=== PATIENT | female | born 1975 | race Caucasian/White ===

== ENCOUNTER 2016-05-27 18:47 | Inpatient (IN) | payer MEDICAID ==
[~2016-05-27] VITALS: Ht 152.4 cm; Wt 99.2 kg
[~2016-05-27 18:47] MED LIST: CALC600T11 PO; FERR15DR19 PO; FERR325C PO; IBUP800T25 PO; PERCOCET PO; PRENAT PO
[2016-05-27 18:50] VITALS: Ht 152.4 cm; Wt 99.2 kg
[2016-05-27] MEDS ORDERED: SOD CHLORIDE 0.9% 1,000 ML IV STA (19:09)
[2016-05-27] MEDS ORDERED: ONDANSETRON 4 MG INJ IV STA (19:09)
[2016-05-27 19:39] LABS: ADD SCAN DIFF NO
[2016-05-27 19:41] LABS: BASOPHILS % 0.1 % (0.0-2.0); EOSINOPHILS # 0.1 10^3/ul (0.0-0.5); EOSINOPHILS % 0.8 % (0.0-7.0); HEMATOCRIT 41.8 % (37.0-47.0); HEMOGLOBIN 13.2 g/dl (12.0-16.0); LYMPHOCYTES % 19.2 % (15.0-51.0); MEAN CORPUSCULAR HEMOGLOBIN 27.2 pg (29.0-33.0); MEAN CORPUSCULAR HGB CONC 31.6 g/dl (32.0-37.0); MEAN PLATELET VOLUME 9.6 fl (7.4-10.4); MONOCYTE # 0.6 10^3/ul (0.3-0.9); MONOCYTES % 5.9 % (0.0-11.0); NEUTROPHIL # 7.8 10^3/ul (1.6-7.5); NEUTROPHILS % 73.6 % (39.0-77.0); PLATELET COUNT 297 10^3/UL (140-415); RED BLOOD COUNT 4.86 10^6/ul (4.20-5.40); RED CELL DISTRIBUTION WIDTH 13.7 % (11.5-14.5); WHITE BLOOD COUNT 10.6 10^3/ul (4.8-10.8)
[2016-05-27 19:46] LABS: ADD UMIC NO; URINE BILIRUBIN (Dip) NEGATIVE (NEGATIVE); URINE BLOOD (Dip) NEGATIVE (NEGATIVE); URINE COLOR YELLOW (YELLOW); URINE GLUCOSE (Dip) NEGATIVE (NEGATIVE); URINE KETONES (Dip) TRACE (NEGATIVE); URINE LEUKOCYTE ESTERASE (Dip) NEGATIVE (NEGATIVE); URINE NITRITE (Dip) NEGATIVE (NEGATIVE); URINE TOTAL PROTEIN (Dip) NEGATIVE (NEGATIVE); URINE UROBILINOGEN (Dip) 0.2 E.U./dL (0.1-1.0)
[2016-05-27 19:55] LABS: ALBUMIN 4.1 g/dl (3.3-4.9)
[2016-05-27 19:56] LABS: POTASSIUM 4.4 mmol/L (3.5-5.1)
[2016-05-27 19:58] LABS: ALBUMIN/GLOBULIN RATIO 1.1; BILIRUBIN,INDIRECT 0.1 mg/dl (0-1.1); BILIRUBIN,TOTAL 0.1 mg/dl (0.2-1.3); CREATININE 0.68 mg/dl (0.44-1.00); TOTAL PROTEIN 7.8 g/dl (6.1-8.1)
[2016-05-27 19:59] LABS: CALCIUM 9.5 mg/dl (8.4-10.2)
--- NOTE | 2016-05-27 20:33 | RADRPT ---
PROCEDURE: CT Abdomen and Pelvis without contrast CLINICAL INDICATION: Mid frontal abdominal pain, history of hernia and renal stones TECHNIQUE: Transaxial images were obtained through the abdomen and pelvis on a multi-slice scanner without the intravenous contrast administration. No oral contrast had previously been given. Sagit joselyn and coronal re-formations were subsequently reconstructed. One or more of the following dose reduction techniques were used: - Automated exposure control. - Adjustment of the mA and/or kV according to patient size. - Use of iterative reconstruction technique. Radiation dose: CTDIvol = 39.35 mGy; DLP = 1507.13 mGy-cm. COMPARISON: 12/09/2014 FINDINGS: Lung bases: The visualized lung bases appear unremarkable. Liver: The liver is enlarged with no focal lesion identified. Gallbladder: The wall is not thickened. No radiopaque stones are identified. Bile ducts: The intra and extrahepatic bile ducts are normal in caliber. Pancreas: Appears normal with no mass or inflammation evident. Spleen: Normal in size with no focal lesion. Adrenals: Normal with no mass identified. Kidneys, ureters and bladder: There are a few nonobstructing right ureteroliths the largest measurin g 3 mm located within the inferior pole olga lidia. There are several right nonobstructing nephroliths u p to a maximum of 3 mm. No intra renal mass or hydronephrosis is evident. The ureters are normal in caliber and no ureteroliths are identified. The bladder is suboptimally distended. Reproductive organs: The uterus is midline. No adnexal mass is evident. Phleboliths are seen in th e pelvis. Stomach and bowel: The stomach is moderately distended with food debris. There are an anastomotic s taples within a segment of proximal ileum within the right abdomen with a focally dilated segment of small bowel measuring 6.6 cm in cross diameter moderately dilated fluid filled segments of small keturah wel are seen in a step latter approach proximal to this area. The colon appears unremarkable. Appendix: A normal vermiform appendix is tentatively identified. Peritoneum: No free intraperitoneal fluid or air is identified. Aorta: Normal in caliber with no aneurysmal dilatation. IVC: Unremarkable. Lymph nodes: No pathologically enlarged nodes are identified. Osseous structures: The osseous elements appear intact. IMPRESSION: 1. Since the previous CT of 12/09/2014, anastomotic steve are again seen within small bowel, like ly proximal ileum, with interval development of focal bowel dilatation at the anastomotic site to 6. 6 cm in cross diameter and with fecalization, and with moderately dilated fluid filled segments of s mall bowel seen more proximally in a stepladder configuration compatible with a partial small bowel obstruction. Stool persists in the colon. 2. Nonobstructing bilateral nephroliths are evident but the distal right ureterolith is no longer e vident and there is no longer right-sided hydronephrosis/hydroureter. 3. Persistent hepatomegaly with no focal lesion. Physician Patrick Date Time Electronically viewed and signed by Physician Patrick on 05/27/2016 20:33 /
[2016-05-27] MEDS ORDERED: MIDAZOLAM 1 MG/ML 2 ML INJ IV ONE (22:30)
[2016-05-27] MEDS ORDERED: ONDANSETRON 4 MG INJ IV PRN ×2 (23:00→23:30)
[2016-05-27] MEDS ORDERED: ACETAMINOPHEN 325 MG TAB PO PRN (23:00)
[2016-05-27] MEDS ORDERED: IOHEXOL 300MG/ML 30 ML BTL ONE (23:15)
[2016-05-27 23:30] VITALS: BP 128/80; PULSE 69; RESP 20
[2016-05-27] MEDS ORDERED: NACL 0.9% 3 ML SYG IV SCH (23:30)
[2016-05-27] MEDS ORDERED: FAMOTIDINE 20 MG INJ IV SCH (23:30)
[2016-05-27] MEDS ORDERED: ACETAMINOPHEN 650 MG SUPP PR PRN (23:30)
--- NOTE | 2016-05-27 23:32 | ERA ---
ER Documentation Chief Complaint Date/Time DATE: 05/27/16 TIME: 23:26 Chief Complaint on and off upper abd pain x 3 hours. denies vomiting/diarrhea HPI 40-year-old female with a history of an umbilical hernia complicated by strangulation status post partial bowel resection with repair of hernia 8 years ago presenting with abdominal pain. She states it started 3 hours prior to arrival. Initially started as a mild discomfort, then got worse after she ate. It is in the middle of her abdomen radiating up and down, aching, constant but intermittently worse, associated with nausea but no vomiting. She stated that her stools were a little more loose than usual this morning but nonbloody. She is passing gas. No fevers or chills. No dysuria. ROS All systems reviewed and are negative except as per history of present illness. Medications Home Meds Active Scripts Ibuprofen* (Ibuprofen*) 800 Mg Tablet, 800 MG PO Q8, #20 TAB 0 Refills Prov:JULIUS NOLEN MD 12/18/15 Oxycodone Hcl/Acetaminophen (Percocet) 1 Tab Tab, 2 TAB PO Q4H Y for PAIN LEVEL 6-10, #30 TAB 0 Refills Prov:JULIUS NOLEN MD 12/18/15 Reported Medications Calcium Carbonate* (Calcium Carbonate*) 600 MG Ca Tab, 600 MG PO DAILY, TAB 11/10/15 Ferrous Sulfate (Iron) 325 Mg Capsule.er, 325 MG PO DAILY, CAP 11/10/15 Ferrous Sulfate (Iron) 15 Mg/1 Ml Drops, 15 MG PO, BOTTLE 11/10/15 Multivit/Min/Fol Ac/Iron/Pren* ( S*) 1 Tab Tab, 1 TAB PO DAILY, TAB 11/10/15 Allergies Allergies: Coded Allergies: ciprofloxacin (Verified Allergy, Unknown, HIVES, 05/27/16) PMhx/Soc History of Surgery: Yes (umb. hernia repair, gallstone removal/stent placement , C-SEC) Anesthesia Reaction: No Hx Neurological Disorder: No Hx Respiratory Disorders: No Hx Cardiac Disorders: No Hx Psychiatric Problems: No Hx Miscellaneous Medical Probl: Yes (RIGHT KIDNEY STENT) Hx Alcohol Use: No Hx Substance Use: No Hx Tobacco Use: No Smoking Status: Never smoker FmHx Family History: No diabetes Physical Exam Vitals Vital Signs Date Time Temp Pulse Resp B/P Pulse Ox O2 Delivery O2 Flow Rate FiO2 05/27/16 18:50 97.7 75 20 133/63 98 Physical Exam Const: Well-appearing, no distress Head: Atraumatic Eyes: Normal Conjunctiva ENT: Normal External Ears, Nose and Mouth. Neck: Full range of motion..~ No meningismus. Resp: Clear to auscultation bilaterally Cardio: Regular rate and rhythm, no murmurs Abd: Soft, mild epigastric and right upper quadrant tenderness, non distended. Hyperactive bowel sounds Skin: No petechiae or rashes Back: No midline or flank tenderness Ext: No cyanosis, or edema Neur: Awake and alert Psych: Normal Mood and Affect Result Diagram: 05/27/16192905/27/161929 Results 24 hrs Laboratory Tests Test 05/27/16 19:30 Alanine Aminotransferase (ALT/SGPT) 27IU/L Albumin 4.1g/dl Albumin/Globulin Ratio 1.10 Alkaline Phosphatase 114IU/L Anion Gap 17 Aspartate Amino Transf (AST/SGOT) 23IU/L Basophils # 0.010^3/ul Basophils % 0.1% Blood Urea Nitrogen 12mg/dl Calcium Level 9.5mg/dl Carbon Dioxide Level 29mmol/L Chloride Level 103mmol/L Creatinine 0.68mg/dl Direct Bilirubin 0.00mg/dl Eosinophils # 0.110^3/ul Eosinophils % 0.8% Globulin 3.70g/dl Glucose Level 120mg/dl Hematocrit 41.8% Hemoglobin 13.2g/dl Indirect Bilirubin 0.1mg/dl Lipase 51U/L Lymphocytes # 2.010^3/ul Lymphocytes % 19.2% Mean Corpuscular Hemoglobin 27.2pg Mean Corpuscular Hemoglobin Concent 31.6g/dl Mean Corpuscular Volume 86.0fl Mean Platelet Volume 9.6fl Monocytes # 0.610^3/ul Monocytes % 5.9% Neutrophils # 7.810^3/ul Neutrophils % 73.6% Nucleated Red Blood Cells # 0.010^3/ul Nucleated Red Blood Cells % 0.0/100WBC Platelet Count 27273^3/UL Potassium Level 4.4mmol/L Red Blood Count 4.8610^6/ul Red Cell Distribution Width 13.7% Sodium Level 145mmol/L Total Bilirubin 0.1mg/dl Total Protein 7.8g/dl Urine Bilirubin NEGATIVE Urine Clarity CLEAR Urine Color YELLOW Urine Glucose NEGATIVE% Urine Hemoglobin NEGATIVE Urine Ketones TRACE Urine Leukocyte Esterase NEGATIVE Urine Nitrite NEGATIVE Urine Specific [place] >=1.030 Urine Total Protein NEGATIVE Urine Urobilinogen 0.2 E.U./dL Urine pH 6.0 White Blood Count 10.610^3/ul Current Medications Medications (Trade) Dose Ordered Sig/Meera Route PRN Reason Start Time Stop Time Status Last Admin Dose Admin Sodium Chloride (NS) 1,000 ml @ 1,000 mls/hr Q1H STAT IV 05/27/16 19:09 05/27/16 20:08 DC 05/27/16 19:23 Ondansetron HCl (Zofran Inj) 4 mg ONCE STAT IV 05/27/16 19:09 05/27/16 19:11 DC 05/27/16 19:22 Midazolam HCl (Versed) 2 mg ONCE ONCE IV 05/27/16 22:30 05/27/16 22:31 DC 05/27/16 23:11 Ondansetron HCl (Zofran Inj) 4 mg BRIDGE ORDER PRN IV NAUSEA AND/OR VOMITING 05/27/16 23:00 05/28/16 22:59 Acetaminophen (Tylenol Tab) 650 mg ER BRIDGE PRN PO MILD PAIN/FEVER 05/27/16 23:00 05/28/16 22:59 Iohexol (Omnipaque 300mg/ ml) 30 ml STK-MED ONCE .ROUTE 05/27/16 23:15 05/27/16 23:16 DC Procedures/MDM EMERGENT LABS AND DIAGNOSTIC STUDIES: Lab Results above were reviewed and interpreted by me. No significant abnormalities Radiology Results as interpreted by Radiology below were reviewed by Phil Emerson MD: CT abdomen and pelvis without contrast: IMPRESSION: 1. Since the previous CT of 12/09/2014, anastomotic steve are again seen within small bowel, likely proximal ileum, with interval development of focal bowel dilatation at the anastomotic site to 6.6 cm in cross diameter and with fecalization, and with moderately dilated fluid filled segments of small bowel seen more proximally in a stepladder configuration compatible with a partial small bowel obstruction. Stool persists in the colon. 2. Nonobstructing bilateral nephroliths are evident but the distal right ureterolith is no longer evident and there is no longer right-sided hydronephrosis/hydroureter. 3. Persistent hepatomegaly with no focal lesion. Physician Patrick Date Time Electronically viewed and signed by Physician Patrick on 05/27/2016 20:33 Initial Nursing notes reviewed. Previous Medical Records requested via the Electronic Health Record. EMERGENCY DEPARTMENT COURSE / MEDICAL DECISION MAKING: Patient is presenting with abdominal pain and nausea. Her vitals are stable and she is afebrile. CT of the abdomen was done to evaluate for possible small bowel obstruction versus recurrent hernia versus colitis. Her CT showed evidence of partial small bowel obstruction. She was given pain medications and nausea medications with improvement of her symptoms, however she continues to have abdominal pain. I spoke with the surgeon prescriptionist, Dr. Bradley, who recommended admission, NG tube, and repeat CT with oral contrast to further evaluate the obstruction. Patient will remain n.p.o. I updated her on the plan and she is amenable to admission. Accepting Care Team: Current data and ongoing care discussed. Time: Time of admission Primary Provider: Dr. Pena Consulting: Dr. Bradley Outstanding Data: CT abdomen and pelvis with oral contrast Patient's blood pressure was elevated (>120/80) but appears stable without evidence of hypertensive emergency or urgency. The patient was counseled about the risks of hypertension and urged to pursue outpatient monitoring and therapy within a week with their primary care physician. Departure Diagnosis: Primary Impression: Partial small bowel obstruction Condition: MARY LOU Romero MD May 27, 2016 23:32
[2016-05-27 23:40] VITALS: PULSE 72
[2016-05-27] MEDS: SOD CHLORIDE 0.9% 1,000 ML IV SCH (23:40)
[2016-05-28] MEDS: morphine 2 MG INJ IV PRN ×3 (00:27→19:43)
[2016-05-28 05:07] LABS: ADD SCAN DIFF NO
[2016-05-28 05:18] LABS: BASOPHILS % 0.1 % (0.0-2.0); EOSINOPHILS # 0.1 10^3/ul (0.0-0.5); EOSINOPHILS % 1.1 % (0.0-7.0); HEMATOCRIT 39.4 % (37.0-47.0); HEMOGLOBIN 12.5 g/dl (12.0-16.0); LYMPHOCYTES # 2.7 10^3/ul (0.8-2.9); LYMPHOCYTES % 27.3 % (15.0-51.0); MEAN CORPUSCULAR HEMOGLOBIN 27.2 pg (29.0-33.0); MEAN CORPUSCULAR HGB CONC 31.7 g/dl (32.0-37.0); MEAN CORPUSCULAR VOLUME 85.8 fl (82.0-101.0); MEAN PLATELET VOLUME 9.6 fl (7.4-10.4); MONOCYTE # 0.7 10^3/ul (0.3-0.9); MONOCYTES % 6.9 % (0.0-11.0); NEUTROPHIL # 6.4 10^3/ul (1.6-7.5); NEUTROPHILS % 64.3 % (39.0-77.0); PLATELET COUNT 274 10^3/UL (140-415); RED BLOOD COUNT 4.59 10^6/ul (4.20-5.40); RED CELL DISTRIBUTION WIDTH 13.6 % (11.5-14.5); WHITE BLOOD COUNT 9.9 10^3/ul (4.8-10.8)
[2016-05-28 05:44] LABS: POTASSIUM 3.7 mmol/L (3.5-5.1)
[2016-05-28 05:47] LABS: CREATININE 0.58 mg/dl (0.44-1.00)
[2016-05-28 05:48] LABS: CALCIUM 8.3 mg/dl (8.4-10.2)
[2016-05-28] MEDS: METOCLOPRAMIDE 10 MG INJ IV PRN ×2 (06:15→19:43)
[2016-05-28 08:17] VITALS: BP 130/73; RESP 18
--- NOTE | 2016-05-28 09:23 | HP ---
Date/Time of Note Date/Time of Note DATE: 05/27/16 TIME: 23:27 Assessment/Plan VTE Prophylaxis VTE Prophylaxis Intervention: other (Not needed.) Assessment/Plan Assessment/Plan 1) Partial small bowel obstruction - Admit to [facility] - NPO - CT Abdomen and Pe;vis with Oral Contrast only - CONSULT: General Surgery - Dr. Bradley contacted by ER Physician HPI/ROS Admit Date/Time Admit Date/Time 05/27/16 Hx of Present Illness Chief Complaint: Abdominal Pain HPI 40-year-old female with a history of an umbilical hernia complicated by strangulation status post partial bowel resection with repair of hernia 8 years ago presenting with abdominal pain. She states it started 3 hours prior to arrival. Initially started as a mild discomfort, then got worse after she ate. It is in the middle of her abdomen radiating up and down, aching, constant but intermittently worse, associated with nausea but no vomiting. She stated that her stools were a little more loose than usual this morning but nonbloody. She is passing gas. No fevers or chills. No dysuria. ER Course per ER Physician: Patient is presenting with abdominal pain and nausea. Her vitals are stable and she is afebrile. CT of the abdomen was done to evaluate for possible small bowel obstruction versus recurrent hernia versus colitis. Her CT showed evidence of partial small bowel obstruction. She was given pain medications and nausea medications with improvement of her symptoms, however she continues to have abdominal pain. I spoke with the surgeon integration lead, Dr. Bradley, who recommended admission, NG tube, and repeat CT with oral contrast to further evaluate the obstruction. Patient will remain n.p.o. I updated her on the plan and she is amenable to admission. ROS Constitutional: No chills, No febrile Eyes: no complaints ENT: no complaints Respiratory: no complaints Cardiovascular: no complaints Gastrointestinal: nausea, pain, No diarrhea, No vomiting Genitourinary: no complaints Musculoskeletal: no complaints Skin: no complaints Neurologic: no complaints Endocrine: no complaints Lymphatic: no complaints PMH/Family/Social Past Surgical History RIGHT KIDNEY STENT, Umbilical hernia repair, gallstone removal/stent placement, C-SEC Past Surgical Hx: no surgical history Family History Significant Family History: other (No Diabetes) Social History Alcohol Use: none Smoking Status: Never smoker Drug Use: none Exam/Review of Systems Vital Signs Vitals Vital Signs Date Time Temp Pulse Resp B/P Pulse Ox O2 Delivery O2 Flow Rate FiO2 05/27/16 18:50 97.7 75 20 133/63 98 Exam Exam Const: Well-appearing, no distress Head: Atraumatic Eyes: Normal Conjunctiva ENT: Normal External Ears, Nose and Mouth. Neck: Full range of motion..~ No meningismus. Resp: Clear to auscultation bilaterally Cardio: Regular rate and rhythm, no murmurs Abd: Soft, mild epigastric and right upper quadrant tenderness, non distended. Hyperactive bowel sounds Skin: No petechiae or rashes Back: No midline or flank tenderness Ext: No cyanosis, or edema Neur: Awake and alert Psych: Normal Mood and Affect Constitutional: oriented, well developed Psych: nl mood/affect (Good eye contact) Head: atraumatic, normocephalic Eyes: EOMI, nl sclera ENMT: mucosa pink and moist, nl external ears & nose, nl lips & teeth Neck: supple (no lymphadenopathy) Respiratory: clear to auscultation, normal air movement Cardiovascular: nl pulses, regular rate and rhythm Gastrointestinal: soft (Mild tenderness in RUG. No suarding or rebound) Musculoskeletal: nl extremities to inspection Extremities: normal pulses Neurological: [employer] OTHER RANKS II-XII intact (grossly), nl mental status, nl speech, nl strength, No focal weakness Lymph: nl lymph nodes (Cervical) Labs Result Diagram: 05/27/16192905/27/161929 Medications Medications Home Meds Active Scripts Ibuprofen* (Ibuprofen*) 800 Mg Tablet, 800 MG PO Q8, #20 TAB 0 Refills Prov:JULIUS NOLEN MD 12/18/15 Oxycodone Hcl/Acetaminophen (Percocet) 1 Tab Tab, 2 TAB PO Q4H Y for PAIN LEVEL 6-10, #30 TAB 0 Refills Prov:JULIUS NOLEN MD 12/18/15 Reported Medications Calcium Carbonate* (Calcium Carbonate*) 600 MG Ca Tab, 600 MG PO DAILY, TAB 11/10/15 Ferrous Sulfate (Iron) 325 Mg Capsule.er, 325 MG PO DAILY, CAP 11/10/15 Ferrous Sulfate (Iron) 15 Mg/1 Ml Drops, 15 MG PO, BOTTLE 11/10/15 Multivit/Min/Fol Ac/Iron/Pren* ( S*) 1 Tab Tab, 1 TAB PO DAILY, TAB 11/10/15 Procedures Procedures Laboratory Tests Test 05/27/16 19:30 Alanine Aminotransferase (ALT/SGPT) 27IU/L Albumin 4.1g/dl Albumin/Globulin Ratio 1.10 Alkaline Phosphatase 114IU/L Anion Gap 17 Aspartate Amino Transf (AST/SGOT) 23IU/L Basophils # 0.010^3/ul Basophils % 0.1% Blood Urea Nitrogen 12mg/dl Calcium Level 9.5mg/dl Carbon Dioxide Level 29mmol/L Chloride Level 103mmol/L Creatinine 0.68mg/dl Direct Bilirubin 0.00mg/dl Eosinophils # 0.110^3/ul Eosinophils % 0.8% Globulin 3.70g/dl Glucose Level 120mg/dl Hematocrit 41.8% Hemoglobin 13.2g/dl Indirect Bilirubin 0.1mg/dl Lipase 51U/L Lymphocytes # 2.010^3/ul Lymphocytes % 19.2% Mean Corpuscular Hemoglobin 27.2pg Mean Corpuscular Hemoglobin Concent 31.6g/dl Mean Corpuscular Volume 86.0fl Mean Platelet Volume 9.6fl Monocytes # 0.610^3/ul Monocytes % 5.9% Neutrophils # 7.810^3/ul Neutrophils % 73.6% Nucleated Red Blood Cells # 0.010^3/ul Nucleated Red Blood Cells % 0.0/100WBC Platelet Count 46076^3/UL Potassium Level 4.4mmol/L Red Blood Count 4.8610^6/ul Red Cell Distribution Width 13.7% Sodium Level 145mmol/L Total Bilirubin 0.1mg/dl Total Protein 7.8g/dl Urine Bilirubin NEGATIVE Urine Clarity CLEAR Urine Color YELLOW Urine Glucose NEGATIVE% Urine Hemoglobin NEGATIVE Urine Ketones TRACE Urine Leukocyte Esterase NEGATIVE Urine Nitrite NEGATIVE Urine Specific [place] >=1.030 Urine Total Protein NEGATIVE Urine Urobilinogen 0.2 E.U./dL Urine pH 6.0 White Blood Count 10.610^3/ul RADIOLOGY: PROCEDURE: CT Abdomen and Pelvis without contrast CLINICAL INDICATION: Mid frontal abdominal pain, history of hernia and renal stones COMPARISON: 12/09/2014 FINDINGS: Lung bases: The visualized lung bases appear unremarkable. Liver: The liver is enlarged with no focal lesion identified. Gallbladder: The wall is not thickened. No radiopaque stones are identified. Bile ducts: The intra and extrahepatic bile ducts are normal in caliber. Pancreas: Appears normal with no mass or inflammation evident. Spleen: Normal in size with no focal lesion. Adrenals: Normal with no mass identified. Kidneys, ureters and bladder: There are a few nonobstructing right ureteroliths the largest measuring 3 mm located within the inferior pole olga lidia. There are several right nonobstructing nephroliths up to a maximum of 3 mm. No intra renal mass or hydronephrosis is evident. The ureters are normal in caliber and no ureteroliths are identified. The bladder is suboptimally distended. Reproductive organs: The uterus is midline. No adnexal mass is evident. Phleboliths are seen in the pelvis. Stomach and bowel: The stomach is moderately distended with food debris. There are an anastomotic steve within a segment of proximal ileum within the right abdomen with a focally dilated segment of small bowel measuring 6.6 cm in cross diameter moderately dilated fluid filled segments of small bowel are seen in a step latter approach proximal to this area. The colon appears unremarkable. Appendix: A normal vermiform appendix is tentatively identified. Peritoneum: No free intraperitoneal fluid or air is identified. Aorta: Normal in caliber with no aneurysmal dilatation. IVC: Unremarkable. Lymph nodes: No pathologically enlarged nodes are identified. Osseous structures: The osseous elements appear intact. IMPRESSION: 1. Since the previous CT of 12/09/2014, anastomotic steve are again seen within small bowel, likely proximal ileum, with interval development of focal bowel dilatation at the anastomotic site to 6.6 cm in cross diameter and with fecalization, and with moderately dilated fluid filled segments of small bowel seen more proximally in a stepladder configuration compatible with a partial small bowel obstruction. Stool persists in the colon. 2. Nonobstructing bilateral nephroliths are evident but the distal right ureterolith is no longer evident and there is no longer right-sided hydronephrosis/hydroureter. 3. Persistent hepatomegaly with no focal lesion. LOKI MERCADO DO May 27, 2016 23:37
--- NOTE | 2016-05-28 11:39 | RADRPT ---
PROCEDURE: CT Abdomen and Pelvis without contrast CLINICAL INDICATION: Evaluate for small bowel obstruction TECHNIQUE: Transaxial images were obtained through the abdomen and pelvis on a multi-slice scanner without the intravenous contrast administration. Oral contrast had previously been given. Sagittal and coronal re-formations were subsequently reconstructed. One or more of the following dose reduction techniques were used: - Automated exposure control. - Adjustment of the mA and/or kV according to patient size. - Use of iterative reconstruction technique. Radiation dose: CTDIvol = 23.64 mGy; DLP = 1415.41 mGy-cm. COMPARISON: 05/27/2016 FINDINGS: Lung bases: The visualized lung bases appear unremarkable. Liver: The liver remains enlarged but intact with no focal lesion identified. Gallbladder: The wall is not thickened. No radiopaque stones are identified. Bile ducts: The intra and extrahepatic bile ducts are normal in caliber. Pancreas: Appears normal with no mass or inflammation evident. Spleen: Normal in size with no focal lesion. Adrenals: Normal with no mass identified. Kidneys, ureters and bladder: Several 2 mm nonobstructing bilateral nephroliths are evident but no r enal mass is identified and there is no evidence of urinary outflow obstruction. The ureters and bl adder appear unremarkable. Reproductive organs: Unremarkable. Stomach and bowel: The stomach is moderately distended with contrast and there is only a faint amoun t of contrast within small bowel. Again an anastomotic steve are seen related to small bowel with in the right anterior abdomen with fecalization of the segment of small bowel at the site of an anas tomosis which is dilated to 7.3 cm in cross diameter. There is less organization of small bowel whi ch is mildly dilated proximal to this and anastomotic site. The more distal small bowel is normal i n caliber. The colon appears unremarkable. Appendix: Portions of an unremarkable appearing vermiform appendix are evident. Peritoneum: No free intraperitoneal fluid or air is identified. Aorta: Normal in caliber with no aneurysmal dilatation. IVC: Unremarkable. Lymph nodes: No pathologically enlarged nodes are identified. Osseous structures: The osseous elements appear intact. IMPRESSION: 1. There again appears to be partial small bowel obstruction at an anastomotic site within the ante rior right abdomen were the segment of small bowel at the anastomoses is somewhat more dilated now m easuring 7.3 cm in cross diameter and again contains fecal-like contents. There is less distension and organization of small bowel proximal to the anastomosis than seen previously. The stomach and co lillie appear unremarkable. 2. Again there are bilateral nonobstructing nephroliths without evidence of urinary outflow obstruc tion or ureterolithiasis. 3. Persistent mild hepatomegaly with no focal lesion. 4. Again, no free fluid or air is identified. Physician Patrick Date Time Electronically viewed and signed by Physician Patrick on 05/28/2016 11:39 RH/
--- NOTE | 2016-05-28 11:59 | PN ---
Date/Time of Note Date/Time of Note DATE: 05/28/16 TIME: 11:57 Assessment/Plan VTE Prophylaxis VTE Prophylaxis Intervention: SCD's Lines/Catheters IV Catheter Type (from Nrs): Peripheral IV Urinary Cath still in place: No Assessment/Plan Chief Complaint/Hosp Course Assessment/Plan 1) Partial small bowel obstruction -Likely secondary history of prior abdominal surgery - NPO -Continue pain medication, IV fluid - CONSULT: General Surgery - Dr. Bradley contacted by ER Physician GI and DVT prophylaxis We will continue monitor patient closely for recommendation management treatment as clinical course Problems: Subjective 24 Hr Interval Summary Free Text/Dictation Patient continues to complain of abdominal pain NG tube in place Exam/Review of Systems Vital Signs Vitals Vital Signs Date Time Temp Pulse Resp B/P Pulse Ox O2 Delivery O2 Flow Rate FiO2 05/28/16 08:17 97.9 68 18 130/73 96 05/27/16 23:40 Room Air Intake and Output 05/27/16 05/27/16 05/28/16 15:00 23:00 07:00 Intake Total 1100 ml Output Total 350 ml Balance 750 ml Exam General: The patient is morbidly obese, Not in acute distress. HEENT: Atraumatic, normocephalic. The pupils are equal and round . NG tube in place Neck: Supple with full range of motion. Chest: Normal expansion of the thorax during inspiration Lungs: Clear to auscultation bilaterally Heart: Normal S1-S2, Regular rhythm and rate. Abdomen: Soft , nontender, nondistended , bowel sounds distant although they are present. Extremities: Normal to inspection, no edema no cyanosis Neurologic: Normal mental status,The patient is awake, alert and oriented . Results Result Diagram: 05/28/1641905/28/16419 Results 24 hrs Laboratory Tests Test 05/27/16 19:30 05/28/16 04:20 Alanine Aminotransferase (ALT/SGPT) 27 Albumin 4.1 Albumin/Globulin Ratio 1.10 Alkaline Phosphatase 114 Anion Gap 17 H 16 Aspartate Amino Transf (AST/SGOT) 23 Basophils # 0.0 0.0 Basophils % 0.1 0.1 Blood Urea Nitrogen 12 11 Calcium Level 9.5 8.3 L Carbon Dioxide Level 29 25 Chloride Level 103 106 Creatinine 0.68 0.58 Direct Bilirubin 0.00 Eosinophils # 0.1 0.1 Eosinophils % 0.8 1.1 Globulin 3.70 H Glucose Level 120 85 Hematocrit 41.8 # 39.4 Hemoglobin 13.2 # 12.5 Indirect Bilirubin 0.1 Lipase 51 Lymphocytes # 2.0 2.7 Lymphocytes % 19.2 27.3 Mean Corpuscular Hemoglobin 27.2 L 27.2 L Mean Corpuscular Hemoglobin Concent 31.6 L 31.7 L Mean Corpuscular Volume 86.0 85.8 Mean Platelet Volume 9.6 9.6 Monocytes # 0.6 0.7 Monocytes % 5.9 6.9 Neutrophils # 7.8 H 6.4 Neutrophils % 73.6 64.3 Nucleated Red Blood Cells # 0.0 0.0 Nucleated Red Blood Cells % 0.0 0.0 Platelet Count 297 274 Potassium Level 4.4 3.7 Red Blood Count 4.86 # 4.59 Red Cell Distribution Width 13.7 13.6 Sodium Level 145 H 143 Total Bilirubin 0.1 L Total Protein 7.8 Urine Bilirubin NEGATIVE Urine Clarity CLEAR Urine Color YELLOW Urine Glucose NEGATIVE Urine Hemoglobin NEGATIVE Urine Ketones TRACE H Urine Leukocyte Esterase NEGATIVE Urine Nitrite NEGATIVE Urine Test NEGATIVE Urine Specific [place] >=1.030 H Urine Total Protein NEGATIVE Urine Urobilinogen 0.2 E.U./dL Urine pH 6.0 White Blood Count 10.6 9.9 Medications Medications Current Medications Sodium Chloride (NS) 1,000 ml @ 100 mls/hr Q10H IV Last administered on 23:40; Admin Dose 100 MLS/HR; Start 05/27/16 at 23:27 Metoclopramide HCl (Reglan) 10 mg Q6H PRN IV NAUSEA AND/OR VOMITING Last administered on 05/28/16 06:15; Admin Dose 10 MG; Start 05/27/16 at 23:30 Acetaminophen (Tylenol Supp) 650 mg Q6H PRN [place] PAIN LEVEL 1-3 OR FEVER; Start 05/27/16 at 23:30 Morphine Sulfate (morphine) 2 mg Q4H PRN IV SEVERE PAIN LEVEL 7-10 Last administered on 05/28/16 06:15; Admin Dose 2 MG; Start 05/27/16 at 23:30 MEÑO GIORDANO MD May 28, 2016 11:59
[2016-05-28] MEDS: SOD CHLORIDE 0.9% 1,000 ML IV SCH ×2 (13:12→19:27)
--- NOTE | 2016-05-28 14:09 | CONS ---
DATE OF ADMISSION: 05/28/2016 DATE OF CONSULTATION: 05/28/2016 HISTORY OF PRESENT ILLNESS: Ms. Queen is a 40-year-old female who approximately 8 years ago underw ent a small bowel resection for a strangulated umbilical hernia. The patient states that beginning yesterday, she had acute onset of crampy abdominal pain, which worsened in severity. She thought sh preet was having another hernia and presented to the ER. She has no bowel movement or flatus overnight. She had an episode of nausea this morning. PAST MEDICAL HISTORY: None. PAST SURGICAL HISTORY: She has a right kidney stent. She also has an umbilical hernia repair, as we ll as a laparoscopic cholecystectomy and a . SOCIAL HISTORY: She drinks occasionally. Denies smoking or drug use. MEDICATIONS: None. PHYSICAL EXAMINATION: GENERAL: She is a well-nourished, morbidly obese female in no apparent distress. VITAL SIGNS: She is currently afebrile. Vital signs stable. CHEST: Clear to auscultation bilaterally. HEART: Regular rhythm. ABDOMEN: Soft but distended with some periumbilical tenderness. LABORATORY DATA: Reveal a white count of 10, hematocrit of 39, and platelets of 274. Sodium 143, p otassium 3.7, chloride 106, CO2 of 25, BUN and creatinine 11 and 0.5, and a glucose of 85. Her CT f rom last night revealed anastomotic steve seen within the small bowel likely to proximal ileum, wi th interval development of focal bowel dilatation at the anastomotic site to 6.6 cm in cross diamete r with and moderately dilated filled segments of small bowel seen more proximally, stool in th e colon. ASSESSMENT AND PLAN: Ms. Queen is a 40-year-old female with likely a small bowel obstruction, like ly from an anastomotic stricture. 1. I have recommended the ER place an NG tube, which was not placed. We will place an NG tube this morning. 2. She will get oral contrast, and a repeat abdominal pelvic CT will be performed. Hopefully this will resolve, but if it is truly an anastomotic stricture, she will likely need re-resection of that anastomosis. Will reevaluate after CT today, and if still persists, will likely need surgery garry fishman. Dictated By: KB PAGAN/KAREEN Conf#: [id number] [facility]#: [id number]
[2016-05-28 20:17] VITALS: BP 116/61; RESP 18
[2016-05-29] MEDS: morphine 2 MG INJ IV PRN ×2 (02:33→12:33)
[2016-05-29] MEDS: METOCLOPRAMIDE 10 MG INJ IV PRN (02:33)
[2016-05-29 08:08] VITALS: BP 116/58; RESP 18
--- NOTE | 2016-05-29 10:22 | PN ---
Date/Time of Note Date/Time of Note DATE: 05/29/16 TIME: : Assessment/Plan VTE Prophylaxis VTE Prophylaxis Intervention: SCD's Lines/Catheters IV Catheter Type (from Nrs): Peripheral IV Urinary Cath still in place: No Assessment/Plan Chief Complaint/Hosp Course Assessment/Plan 1) Partial small bowel obstruction -Likely secondary history of prior abdominal surgery - NPO, follow-up KUB -Continue pain medication, IV fluid - CONSULT: General Surgery - Dr. Bradley , will follow up his recommendations 2) obesity Diet and exercise has been recommended GI and DVT prophylaxis We will continue monitor patient closely for recommendation management treatment as clinical course Problems: Subjective 24 Hr Interval Summary Free Text/Dictation Patient continues to complain of having mild abdominal discomfort No bowel movement NG tube in place Exam/Review of Systems Vital Signs Vitals Vital Signs Date Time Temp Pulse Resp B/P Pulse Ox O2 Delivery O2 Flow Rate FiO2 05/29/16 08:08 99.3 68 18 116/58 97 05/27/16 23:40 Room Air Intake and Output 05/28/16 05/28/16 05/29/16 15:00 23:00 07:00 Intake Total 500 ml 500 ml 700 ml Output Total 900 ml Balance 500 ml 500 ml -200 ml Exam General: The patient is morbidly obese, Not in acute distress. NG tube in place HEENT: Atraumatic, normocephalic. The pupils are equal and round . Neck: Supple with full range of motion. Chest: Normal expansion of the thorax during inspiration Lungs: Clear to auscultation bilaterally Heart: Normal S1-S2, Regular rhythm and rate. Abdomen: Soft , nontender, nondistended , bowel sounds are present. Extremities: Normal to inspection, no edema no cyanosis Neurologic: Normal mental status,The patient is awake, alert and oriented . Results Result Diagram: 05/28/16 0420 05/28/16 0420 Medications Medications Current Medications Sodium Chloride (NS) 1,000 ml @ 100 mls/hr Q10H IV Last administered on 19:27; Admin Dose 100 MLS/HR; Start 05/27/16 at 23:27 Metoclopramide HCl (Reglan) 10 mg Q6H PRN IV NAUSEA AND/OR VOMITING Last administered on 05/29/16 02:33; Admin Dose 10 MG; Start 05/27/16 at 23:30 Acetaminophen (Tylenol Supp) 650 mg Q6H PRN [place] PAIN LEVEL 1-3 OR FEVER; Start 05/27/16 at 23:30 Morphine Sulfate (morphine) 2 mg Q4H PRN IV SEVERE PAIN LEVEL 7-10 Last administered on 05/29/16 02:33; Admin Dose 2 MG; Start 05/27/16 at 23:30 MEÑO GIORDANO MD May 29, 2016 10:22
[2016-05-29] MEDS: SOD CHLORIDE 0.9% 1,000 ML IV SCH ×3 (11:17→20:37)
--- NOTE | 2016-05-29 11:29 | RADRPT ---
PROCEDURE: XR Abdomen 2 Views. CLINICAL INDICATION: Abdominal pain, small bowel obstruction appear TECHNIQUE: AP supine and upright abdomen x-ray. COMPARISON: CT May 28, 2016 FINDINGS: Nasogastric tube has its distal end in the expected location of the stomach. Oral contrast is ident ified throughout the colon. No dilated loops of small bowel are observed. No organomegaly is observ ed. Multiple phleboliths are seen in the pelvis. The osseous structures are intact. IMPRESSION: Nasogastric tube with its distal end in the expected location of the stomach. Oral contrast throughout the colon. Nonspecific bowel gas pattern. The dilated loops of small bowel seen on the prior CT are not visualized on the current exam. RPTAT: AA .Rah Nolasco MD, Date Time Electronically viewed and signed by .Rah Nolasco MD, on 05/29/2016 11:28 .P/
[2016-05-29] MEDS ORDERED: VITAMIN A & D 5 GM OINT PACKET TOP ONE (12:36)
[2016-05-29 20:26] VITALS: BP 128/58; RESP 18
--- NOTE | 2016-05-29 20:27 | PN ---
DATE: 05/29/2016 SUBJECTIVE: Ms. Queen is hospital day 1 from a possible small-bowel obstruction. She is toleratin g clears today and passing gas, having bowel movements. OBJECTIVE: VITAL SIGNS: She is afebrile. Vital signs stable. ABDOMEN: Soft, nontender, nondistended. Labs reveal a white count of 10, hematocrit of 39 and platelets of 274. She did have an abdominal series today which showed contrast throughout the colon and nonspecific keturah wel gas pattern. ASSESSMENT AND PLAN: Ms. Queen is a 40-year-old female with a resolving small-bowel obstruction. Advance to soft diet in the morning and if tolerates may discharge home. Dictated By: KB PAGAN/NTS Conf#: [id number] DID#: [id number]
[2016-05-29] MEDS: HYDROCODONE/APAP (5/325) TAB PO PRN (23:36)
[2016-05-30 05:50] LABS: ADD SCAN DIFF NO
[2016-05-30 06:09] LABS: BASOPHILS % 0.3 % (0.0-2.0); EOSINOPHILS # 0.2 10^3/ul (0.0-0.5); EOSINOPHILS % 2.3 % (0.0-7.0); HEMATOCRIT 35.1 % (37.0-47.0); HEMOGLOBIN 11.5 g/dl (12.0-16.0); LYMPHOCYTES # 2.4 10^3/ul (0.8-2.9); LYMPHOCYTES % 34.8 % (15.0-51.0); MEAN CORPUSCULAR HEMOGLOBIN 27.8 pg (29.0-33.0); MEAN CORPUSCULAR HGB CONC 32.8 g/dl (32.0-37.0); MEAN PLATELET VOLUME 9.8 fl (7.4-10.4); MONOCYTE # 0.6 10^3/ul (0.3-0.9); MONOCYTES % 8.2 % (0.0-11.0); NEUTROPHIL # 3.8 10^3/ul (1.6-7.5); NEUTROPHILS % 54.3 % (39.0-77.0); PLATELET COUNT 250 10^3/UL (140-415); RED BLOOD COUNT 4.13 10^6/ul (4.20-5.40); RED CELL DISTRIBUTION WIDTH 13.3 % (11.5-14.5)
[2016-05-30 06:19] LABS: POTASSIUM 3.4 mmol/L (3.5-5.1)
[2016-05-30 06:22] LABS: CREATININE 0.59 mg/dl (0.44-1.00)
[2016-05-30 06:23] LABS: MAGNESIUM 1.6 mg/dl (1.7-2.5)
[2016-05-30 08:36] VITALS: BP 135/67; RESP 18
--- NOTE | 2016-05-30 10:39 | PDOCDIS ---
Discharge Instructions CONDITION Patient Condition: Good HOME CARE INSTRUCTIONS: Special Diet: Soft low calorie diet ACTIVITY: Activity Restrictions: No Restrictions FOLLOW UP/APPOINTMENTS Appointments Follow-up with primary care physician as outpatient MEÑO GIORDANO MD May 30, 2016 10:39
[2016-05-30] MEDS ORDERED: DOCU-144 PO (10:51)
[2016-05-30] MEDS ORDERED: METO5TAB2 PO (10:51)
[2016-05-30] MEDS ORDERED: ONDA-43 PO (10:51)
[2016-05-30] MEDS ORDERED: POTASSIUM CHLORIDE (SR) 20 MEQ TAB PO SCH (10:57)
[2016-05-30] MEDS ORDERED: MAGNESIUM OXIDE 400 MG TAB PO SCH (11:00)
[2016-05-30] MEDS ORDERED: OMEP20CA16 PO (11:04)
[2016-05-30] MEDS: SOD CHLORIDE 0.9% 1,000 ML IV SCH (11:27)
--- NOTE | 2016-05-30 12:14 | DS ---
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 Brandon Bradley MD PROCEDURE: NG tube placement DIAGNOSES: 1. Partial small-bowel obstruction, likely secondary to history of prior abdominal surgery. Patien t was made n.p.o. and it has resolved. 2. Morbid obesity with BMI of 42.7. Diet and exercise was recommended. 3. . Continue multivitamins. MEDICATIONS: 1. Colace 100 mg. 2. Reglan 5 mg. 3. Zofran 4 mg. 4. Calcium carbonate 600 mg. 5. Ferrous sulfate 325 mg. 6. Multivitamin daily. 7. Percocet q.6h. ALLERGIES: CIPRO. HOSPITAL COURSE: This is a 40-year-old female with past medical history of umbilical hernia complic ated by strangulation, status post partial small bowel resection and repair of hernia 8 years ago, w oleg presented to [facility] having abdominal pain for 3 hours. This was associated with nausea without any vomiting and abdominal pain that started with mild discomfort, worsening af ter she had some oral intake. The pain was in the mid abdomen radiating down to her belly area. He r last bowel movement was the day before on 05/26/2016. She had a CT of the abdomen and pelvis in t he course of the emergency room which demonstrated partial bowel obstruction at the anastomotic site within the anterior right abdomen where segments of small bowel stenosis was somewhat more dilated measuring 7.3 cm across diameter and again contains fecal like content, bilateral nonobstructing nep hrolithiasis without evidence of urinary outflow obstruction, ureterolithiasis, persistent mild hepa tomegaly with no focal lesion. Patient had NG tube, made n.p.o., IV fluid, pain medication was init iated. On 05/29/2016, patient had a KUB done which showed oral contrast throughout the colon, nonsp ecific bowel gas pattern and dilated loop of small bowel seen on prior CT is not visualized. The natan miller's NG tube was discontinued. The patient was started on clear liquid diet with advance to soft diet, which she has been tolerating. The patient has had bowel movement. Her vitals are stable wi th temperature 98.2, pulse 69, respiration 18, blood pressure 135/67, oxygen saturation 96% in room air. The patient has been able to ambulate without difficulty. Her labs are stable with WBC 7.0, h emoglobin 11.5, hematocrit 35.1, platelets 250. Sodium 144, potassium 3.4, chloride 107, bicarbonat e 26, BUN 14, creatinine 0.59, glucose 83. Magnesium 1.6. Both potassium and magnesium will be rep leted prior to discharge. CONDITION AT TIME OF DISCHARGE: Stable. Dictated By: MEÑO GIORDANO MD PN/NTS Conf#: [id number] DID#: [id number] CC: LOKI MERCADO MD;*EndCC*
[2016-05-30] MEDS: HYDROCODONE/APAP (5/325) TAB PO PRN (12:27)
== END 2016-05-30 15:10 | disposition home or self-care (01) | DRG 394 ==
LOC: FTE 18:47 → MS1 22:55 → OBSVTOIN 05-28 07:30
PROVIDERS: ADMIT Family Medicine; ATTEND Family Medicine
DX: K91.3 Postprocedural intestinal obstruction (principal); Z68.41 Body mass index [BMI] 40.0-44.9, adult; N20.0 Calculus of kidney; R16.0 Hepatomegaly, not elsewhere classified; Z98.890 Other specified postprocedural states; E66.9 Obesity, unspecified; Y83.8 Other surgical procedures as the cause of abnormal reaction of the patient, or of later complication, without mention of misadventure at the time of the procedure
CPT/HCPCS: 36415; 74010; 74176; 80048; 80053; 81003; 83690; 83735; 84703; 85025; 96374; G0378; J2250; J2270; J2405; J2765; J7030; Q9967

== ENCOUNTER 2016-09-01 10:51 | Inpatient (IN) | payer MEDICAID ==
[~2016-09-01] VITALS: Ht 157.5 cm; Wt 100.2 kg
[~2016-09-01 10:51] MED LIST changes: +DOCU-144 PO; -FERR15DR19 PO; -IBUP800T25 PO; +METO5TAB2 PO; +OMEP20CA16 PO; +ONDA-43 PO
[2016-09-01 10:55] VITALS: Ht 157.5 cm; Wt 100.2 kg
--- NOTE | 2016-09-01 12:07 | ERD ---
ER Documentation Chief Complaint Date/Time DATE: 09/01/16 TIME: 12:05 Chief Complaint vag bleed x 2 days and today passed clot, 8 weeks HPI This is a 41-year-old female who presents to the emergency department today complaining of vaginal bleeding for the past 2-3 days. Patient states that 3 days ago she had intercourse and later she noticed that she had some vaginal bleeding. She stated it was spotting at that time but then yesterday she noticed that she passed a clot. States she is approximately 8-9 weeks . Denies any abdominal pain, fevers or chills, nausea or vomiting or dysuria states that she does not have an [employer] at this time. ROS All systems reviewed and are negative except as per history of present illness. Medications Home Meds Active Scripts Omeprazole* (Omeprazole*) 20 Mg Capsule.dr, 20 MG PO DAILY, #30 CAP Prov:MEÑO GIORDANO MD 05/30/16 Metoclopramide Hcl (Reglan) 5 Mg Tab, 5 MG PO Q6H Y for NAUSEA, #20 TAB Prov:MEÑO GIORDANO MD 05/30/16 Ondansetron Hcl* (Zofran*) 4 Mg Tab, 4 MG PO Q4H Y for NAUSEA AND OR VOMITING, # 14 TAB Prov:MEÑO GIORDANO MD 05/30/16 Docusate Sodium* (Colace*) 100 Mg Capsule, 100 MG PO Q24H Y for CONSTIPATION, # 30 CAP Prov:MEÑO GIORDANO MD 05/30/16 Oxycodone Hcl/Acetaminophen (Percocet) 1 Tab Tab, 2 TAB PO Q4H Y for PAIN LEVEL 6-10, #30 TAB 0 Refills Prov:JULIUS NOLEN MD 12/18/15 Reported Medications Calcium Carbonate* (Calcium Carbonate*) 600 MG Ca Tab, 600 MG PO DAILY, TAB 11/10/15 Ferrous Sulfate (Iron) 325 Mg Capsule.er, 325 MG PO DAILY, CAP 11/10/15 Multivit/Min/Fol Ac/Iron/Pren* ( S*) 1 Tab Tab, 1 TAB PO DAILY, TAB 11/10/15 Allergies Allergies: Coded Allergies: ciprofloxacin (Verified Allergy, Unknown, HIVES, 05/27/16) PMhx/Soc History of Surgery: Yes (umb. hernia repair, gallstone removal/stent placement , C-SEC) Anesthesia Reaction: No Hx Neurological Disorder: Yes Hx Respiratory Disorders: No Hx Cardiac Disorders: No Hx Psychiatric Problems: No Hx Miscellaneous Medical Probl: No Hx Alcohol Use: No Hx Substance Use: No Hx Tobacco Use: No Physical Exam Vitals Vital Signs Date Time Temp Pulse Resp B/P Pulse Ox O2 Delivery O2 Flow Rate FiO2 09/01/16 10:55 98.3 78 20 102/55 98 Physical Exam Const: Obese, no acute distress Head: Atraumatic Eyes: Normal Conjunctiva ENT: Normal External Ears, Nose and Mouth. Neck: Full range of motion..~ No meningismus. Resp: Clear to auscultation bilaterally Cardio: Regular rate and rhythm, no murmurs Abd: Soft, non tender, non distended. Normal bowel sounds. No right lower quadrant pain. No left lower quadrant pain. Skin: No petechiae or rashes Neur: Awake and alert Psych: Normal Mood and Affect Result Diagram: 09/01/16 1130 09/01/16 1420 Results 24 hrs Laboratory Tests Test 09/01/16 11:30 09/01/16 11:40 09/01/16 14:20 White Blood Count 7.610^3/ul Red Blood Count 4.2510^6/ul Hemoglobin 11.4g/dl Hematocrit 35.5% Mean Corpuscular Volume 83.5fl Mean Corpuscular Hemoglobin 26.8pg Mean Corpuscular Hemoglobin Concent 32.1g/dl Red Cell Distribution Width 14.3% Platelet Count 19149^3/UL Mean Platelet Volume 9.5fl Neutrophils % 74.7% Lymphocytes % 18.3% Monocytes % 5.7% Eosinophils % 0.9% Basophils % 0.1% Nucleated Red Blood Cells % 0.0/100WBC Neutrophils # 5.710^3/ul Lymphocytes # 1.410^3/ul Monocytes # 0.410^3/ul Eosinophils # 0.110^3/ul Basophils # 0.010^3/ul Nucleated Red Blood Cells # 0.010^3/ul Beta HCG, Quantitative 094784.0mIU/ml Urine Color LT. YELLOW Urine Clarity CLOUDY Urine pH 7.[address] 1.010 Urine Ketones NEGATIVE Urine Nitrite NEGATIVE Urine Bilirubin NEGATIVE Urine Urobilinogen 0.2 E.U./dL Urine Leukocyte Esterase 1+ Urine Microscopic RBC >200/HPF Urine Microscopic WBC 5-10/HPF Urine Hemoglobin 3+ Urine Glucose NEGATIVE% Urine Total Protein TRACE Sodium Level 140mmol/L Potassium Level 4.3mmol/L Chloride Level 109mmol/L Carbon Dioxide Level 20mmol/L Anion Gap 15 Blood Urea Nitrogen 10mg/dl Creatinine 0.53mg/dl Glucose Level 81mg/dl Calcium Level 9.3mg/dl Total Bilirubin 0.1mg/dl Direct Bilirubin 0.00mg/dl Indirect Bilirubin 0.1mg/dl Aspartate Amino Transf (AST/SGOT) 26IU/L Alanine Aminotransferase (ALT/SGPT) 19IU/L Alkaline Phosphatase 102IU/L Total Protein 7.6g/dl Albumin 4.4g/dl Globulin 3.20g/dl Albumin/Globulin Ratio 1.37 Current Medications Medications (Trade) Dose Ordered Sig/Meera Route PRN Reason Start Time Stop Time Status Last Admin Dose Admin Sodium Chloride (NS) 1,000 ml @ 80 mls/hr [id number] IV 09/01/16 14:58 09/02/16 03:27 09/01/16 15:15 Ondansetron HCl (Zofran Inj) 4 mg BRIDGE ORDER PRN IV NAUSEA AND/OR VOMITING 09/01/16 15:00 09/02/16 14:59 09/01/16 15:15 Acetaminophen (Tylenol Tab) 650 mg ER BRIDGE PRN PO MILD PAIN/FEVER 09/01/16 15:00 09/02/16 14:59 09/01/16 15:15 DIAGNOSTIC IMAGING REPORT Patient: ADITHYA WILSON : 1975 Age: 41 Sex: F MR #: [id number] DOS: 09/01/16 0000 Ordering MD: RAFAEL GONZALEZ PA-C Location: [facility]TE Room/Bed: PROCEDURE: US Pelvis. CLINICAL INDICATION: vaginal bleeding TECHNIQUE: Multiple sonographic images of the pelvis were obtained utilizing a transabdominal and endovaginal technique. The images were reviewed on a PACS workstation. COMPARISON: None. FINDINGS: The uterus is normal in size and demonstrates a normal appearance of the myometrium. The endometrium is markedly thickened and complex with multiple cystic areas, measuring 7.0 x 6.2 x 3.7 cm. No intrauterine gestation is noted. The ovaries are normal in size and echogenicity. Normal Doppler flow is identified in both ovaries. The right ovary measures 3.3 x 2.1 x 2.5 cm. The left ovary measures 2.6 x 2.0 x 2.3 cm. No free fluid is present within the pelvis.. RPTAT: AA IMPRESSION: No intrauterine gestation visualized. Markedly thickened and complex endometrium with multiple cystic areas, measuring 7.0 x 6.2 cm. The findings may represent a molar . Differential diagnosis also includes early , missed or ectopic . Follow-up ultrasound and HCG levels is recommended. .Josiah Ashley MD, MD Date Time Electronically viewed and signed by .Josiah Ashley MD, on 09/01/2016 12: 37 .S/ CC: RAFAEL GONZALEZ PA-C Procedures/[facility] This is a 41-year-old female who presents to the emergency department today for some vaginal bleeding for the past couple of days it started after having intercourse 3 days ago. Patient indicated that she did pass a clot that she is approximately 8-9 weeks . Given this I did obtain a complete OB workup. Laboratory work shows no elevated white blood cell count. Her hemoglobin is very mildly decreased. Platelets are within normal limits per UA shows 1+ leukocyte esterase. Beta quant hCG 670512.0 Rh status A + Ultrasound shows no intrauterine gestation visualized. There is markedly thickened and complex endometrium with multiple cystic areas measuring 7.0 x 6.2 cm. The findings may represent a molar . Differential diagnosis also includes early , missed or ectopic . Follow-up ultrasound and hCG levels are recommended. There is no free fluid present within the pelvis. There is normal Doppler flow identified to both ovaries. Given patient's ultrasound results I did have concern in regards to possible molar and therefore I did place a call to the laborist working second hand, Dr. Avery, who is agreed to come and see the patient. He did discuss the results with the patient and patient has agreed to a D& C. She will be admitted to the hospital. Any further admission orders will be placed by Dr. Avery or the laborist working second hand. RAFAEL GONZALEZ PA-C Sep 01, 2016 12:07
[2016-09-01 12:22] LABS: ADD SCAN DIFF NO
[2016-09-01 12:28] LABS: WHITE BLOOD COUNT 7.6 10^3/ul (4.8-10.8)
[2016-09-01 12:29] LABS: BASOPHILS % 0.1 % (0.0-2.0); EOSINOPHILS # 0.1 10^3/ul (0.0-0.5); EOSINOPHILS % 0.9 % (0.0-7.0); HEMATOCRIT 35.5 % (37.0-47.0); HEMOGLOBIN 11.4 g/dl (12.0-16.0); LYMPHOCYTES # 1.4 10^3/ul (0.8-2.9); LYMPHOCYTES % 18.3 % (15.0-51.0); MEAN CORPUSCULAR HEMOGLOBIN 26.8 pg (29.0-33.0); MEAN CORPUSCULAR HGB CONC 32.1 g/dl (32.0-37.0); MEAN CORPUSCULAR VOLUME 83.5 fl (82.0-101.0); MEAN PLATELET VOLUME 9.5 fl (7.4-10.4); MONOCYTE # 0.4 10^3/ul (0.3-0.9); MONOCYTES % 5.7 % (0.0-11.0); NEUTROPHIL # 5.7 10^3/ul (1.6-7.5); NEUTROPHILS % 74.7 % (39.0-77.0); PLATELET COUNT 252 10^3/UL (140-415); RED BLOOD COUNT 4.25 10^6/ul (4.20-5.40); RED CELL DISTRIBUTION WIDTH 14.3 % (11.5-14.5)
--- NOTE | 2016-09-01 12:37 | RADRPT ---
PROCEDURE: US Pelvis. CLINICAL INDICATION: vaginal bleeding TECHNIQUE: Multiple sonographic images of the pelvis were obtained utilizing a transabdominal and endovaginal technique. The images were reviewed on a PACS workstation. COMPARISON: None. FINDINGS: The uterus is normal in size and demonstrates a normal appearance of the myometrium. The endometrium is markedly thickened and complex with multiple cystic areas, measuring 7.0 x 6.2 x 3.7 cm. No intrauterine gestation is noted. The ovaries are normal in size and echogenicity. Normal Doppler flow is identified in both ovaries. The right ovary measures 3.3 x 2.1 x 2.5 cm. The left ovary measures 2.6 x 2.0 x 2.3 cm. No free fluid is present within the pelvis.. RPTAT: AA IMPRESSION: No intrauterine gestation visualized. Markedly thickened and complex endometrium with multiple cystic areas, measuring 7.0 x 6.2 cm. The findings may represent a molar . Differential diagnosis also includes early , missed or ectopic . Follow-up ultrasound and HCG levels is recommended. .Josiah Ashley MD, Date Time Electronically viewed and signed by .Josiah Ashley MD, on 09/01/2016 12:37 .S/
[2016-09-01 13:08] LABS: ADD UMIC YES; UR BILIRUBIN (Dip) NEGATIVE (NEGATIVE); UR BLOOD (Dip) 3+ (NEGATIVE); UR CLARITY CLOUDY (CLEAR); UR COLOR LT. YELLOW (YELLOW); UR GLUCOSE (Dip) NEGATIVE (NEGATIVE); UR KETONES (Dip) NEGATIVE (NEGATIVE); UR LEUKOCYTE ESTERASE (Dip) 1+ (NEGATIVE); UR NITRITE (Dip) NEGATIVE (NEGATIVE); UR TOTAL PROTEIN (Dip) TRACE (NEGATIVE); UR UROBILINOGEN (Dip) 0.2 E.U./dL (0.1-1.0)
[2016-09-01 13:33] LABS: URINE RBCS >200 /HPF (0)
[2016-09-01] MEDS ORDERED: ONDANSETRON 4 MG INJ IV PRN (15:00)
[2016-09-01 15:13] LABS: ALBUMIN 4.4 g/dl (3.3-4.9); ALBUMIN/GLOBULIN RATIO 1.37; BILIRUBIN,INDIRECT 0.1 mg/dl (0-1.1); BILIRUBIN,TOTAL 0.1 mg/dl (0.2-1.3); CALCIUM 9.3 mg/dl (8.4-10.2); CREATININE 0.53 mg/dl (0.44-1.00); POTASSIUM 4.3 mmol/L (3.5-5.1); TOTAL PROTEIN 7.6 g/dl (6.1-8.1)
[2016-09-01] MEDS: ACETAMINOPHEN 325 MG TAB PO PRN (15:15)
[2016-09-01] MEDS: SOD CHLORIDE 0.9% 1,000 ML IV SCH ×2 (15:15→22:46)
[2016-09-01] MEDS ORDERED: NACL 0.9% 3 ML SYG IV SCH (15:30)
--- NOTE | 2016-09-01 15:35 | RADRPT ---
PROCEDURE: XR CHEST AP PORTABLE CLINICAL INDICATION: Complete physical exam TECHNIQUE: Single frontal view of the chest COMPARISON: 12/10/2014 FINDINGS: The cardiomediastinal silhouette and pulmonary vasculature are normal. The lungs are clear. No consolidation, effusion, or pneumothorax. The osseous structures are unremarkable. IMPRESSION: No acute cardiopulmonary process. RPTAT:PP .Demetri Yip MD, MD Date Time Electronically viewed and signed by .Demetri Yip MD, on 09/01/2016 15:34 .V/
[2016-09-01 16:02] LABS: INR 0.98
--- NOTE | 2016-09-01 16:07 | HP ---
DATE OF ADMISSION: 09/01/2016 HISTORY OF PRESENT ILLNESS: The patient is a 35-year-old G7, P6 who presents to the hospital compla ining of several bouts of vaginal bleeding over the course of the last 2 days. The patient's last m enstrual period was approximately 2 months ago. No nausea, vomiting fevers or chills. No headaches , blurry vision or other signs or symptoms. PAST MEDICAL HISTORY: None. PAST SURGICAL HISTORY: Hernia and a stent replacement for history of kidney stones. PHYSICAL EXAMINATION: VITAL SIGNS: Stable. HEART: Regular rhythm. LUNGS: Clear to auscultation bilaterally. ABDOMEN: Soft, nontender. No rebound or guarding. Fundal height is below the pubic bone. LABORATORY: Shows a 7.8 cm cystic material within the uterus consistent with a probable on molar pr egnancy. Beta hCG is 213,550. Hemoglobin 11.4. CMP is within normal limits. ASSESSMENT: This is a 41-year-old with a molar , currently stable. The patient instructed that she may need a dilation and curettage to remove the molar tissues and also followup instructions were given the patient. The patient consents for dilation and curettage. Risk of infe ction, bleeding, damage to organs, possibility of blood transfusion all discussed with patient. Bonita coughlin understood the risks and consented for dilation and curettage after all questions were answered . Dictated By: JEREMY AMBROSIO MD /NTS Conf#: [id number] DID#: [id number]
[2016-09-01 18:31] VITALS: TEMP 98.5
[2016-09-01 18:45] VITALS: BP 97/53; PULSE 63; RESP 18
[2016-09-01 20:33] VITALS: BP 97/53; RESP 18
[2016-09-01] MEDS: LACTATED RINGER'S 1,000 ML IV SCH (23:30)
[2016-09-02] MEDS: SOD CHLORIDE 0.9% 1,000 ML IV SCH (00:25)
[2016-09-02] MEDS: LACTATED RINGER'S 1,000 ML IV SCH ×3 (05:12→15:43)
[2016-09-02 08:00] VITALS: BP 111/50; RESP 18
[2016-09-02] MEDS: ACETAMINOPHEN 325 MG TAB PO PRN (09:00)
[2016-09-02] MEDS ORDERED: PROPOFOL 20 ML ONE (16:45)
[2016-09-02] MEDS ORDERED: FENTAnyl 50 MCG/ML VIAL ONE (16:45)
[2016-09-02] MEDS ORDERED: MIDAZOLAM 1 MG/ML 2 ML INJ ONE (16:45)
[2016-09-02] MEDS ORDERED: DEXAMETHASONE 4 MG/ML 1 ML INJ ONE (16:53)
[2016-09-02] MEDS ORDERED: CEFAZOLIN 1 GM INJ ONE (16:53)
[2016-09-02] MEDS ORDERED: ONDANSETRON 4 MG INJ ONE (16:53)
[2016-09-02] MEDS ORDERED: KETOROLAC 30 MG INJ ONE (16:53)
[2016-09-02] MEDS ORDERED: PHENYLephrine (100 MCG/ML) 5ML SYG ONE ×2 (16:53→17:12)
[2016-09-02] MEDS ORDERED: METOCLOPRAMIDE 10 MG INJ ONE (16:53)
[2016-09-02] MEDS ORDERED: METHYLERGONOVINE 0.2 MG INJ ONE (17:08)
[2016-09-02] MEDS ORDERED: HYDROmorphONE 1 MG/ML SYG IV PRN (19:00)
[2016-09-02 20:00] VITALS: BP 106/55; RESP 18
--- NOTE | 2016-09-02 20:13 | OPR ---
DATE OF OPERATION: 09/02/2016 REOPERATIVE DIAGNOSIS: Molar . POSTOPERATIVE DIAGNOSIS: Molar . OPERATION PERFORMED: Dilatation with suction and sharp curettage. SURGEON: Aquilino Cohen MD ANESTHESIA: General anesthesia. ESTIMATED BLOOD LOSS: 100 mL. COMPLICATIONS: None. PATHOLOGY: Products of conception sent to pathology. PROCEDURE FOLLOWS: The patient was brought to the operating room, placed on the operating room t able and was put to sleep. Her legs were then brought up into stirrups, and she was prepped and ana paula ped in usual sterile fashion. A weighted speculum was placed into the vaginal vault. The cervix wa s grasped with a tenaculum. There was a large blood clot opening her cervix, so it was least 3 cm d ilated. The uterus was sounded to 14 cm. A suction curette was placed at the top. Machine was tur aruna on and the uterine contents were evacuated. A lot of tissue and blood retrieved. This was repe ated over several passes until no more tissue was being retrieved. The patient was not having any a ctive bleeding. A sharp curette was then used to scrape all of the lateral side cuevas, as well as t he fundus. There was still remaining tissue up at the fundus which was easily removed. The uterus was cleaned. There was no bleeding. The uterus was still enlarged a fair amount, even though she w as not bleeding. I asked the anesthesiologist to give her a dose of Methergine just to help ensure that it contracts nicely. The procedure was terminated. The tenaculum was removed. The vault was cleaned. The perineum was cleaned. The patient's legs were brought back down to the full supine po sition. She was awakened from general anesthesia and transported to the recovery room in excellent condition. BLOOD TYPE: A positive. Dictated By: AQUILINO ASKEW/KAREEN Conf#: [id number] DID#: [id number]
--- NOTE | 2016-09-02 20:45 | OPR ---
Date/Time of Note Date/Time of Note DATE: 09/02/16 TIME: 17:49 Operative Report Preoperative Diagnosis Molar Postoperative Diagnosis Molar Operation/Procedure Performed D and C Surgeon: ARNAUD GREEN MD Anesthesia: general Estimated Blood Loss: 50 - 100 ml's Specimens Products of conception Complications: None ARNAUD GREEN MD Sep 02, 2016 17:51
[2016-09-03] MEDS ORDERED: IBUPROFEN 800 MG TAB PO PRN (02:00)
[2016-09-03] MEDS: IBUPROFEN 400 MG TAB PO PRN ×2 (02:07→13:11)
[2016-09-03 08:04] VITALS: BP 112/60; RESP 16
[2016-09-03] MEDS ORDERED: BISACODYL (EC) 5 MG TAB PO ONE (11:30)
--- NOTE | 2016-09-03 13:45 | PD.PPDC ---
[facility] Discharge Instruction Diagnosis Final Diagnosis: Molar status post Dilation and Curettage Condition Patient Condition: Good Diet Diet: Resume Regular Diet Activity/Restrictions Activity: Normal Activity May Shower Restrictions: No Sexual Activity Nothing in the Vagina No [place] No Tampons, douche Follow-up Follow-up with Physician: 1, Week/Weeks Provider Information: Dr. 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
--- NOTE | 2016-09-03 13:51 | DS ---
Date/Time of Note Date/Time of Note DATE: 09/03/16 TIME: 13:46 Discharge Summary Admission/Discharge Info Admit Date/Time Sep 01, 2016 at 14:59 Discharge Date/Time Final Diagnosis Molar s/p D&C Patient Condition: Good Procedures Dilation and Curettage Hospital Course Pt was admitted and underwent Dilation and Curettage in the setting of vaginal bleeding in early with Bhcg 213,550 and concern for molar on pelvic ultrasound. Pt recovered well and was ready for d/c home on POD#1. Bhcg prior to discharge 74,771. Pt was discharged home in stable condition with follow-up precautions. Pathology pending at the time of discharge. Pt declined a prescription for Ibuprofen for pain 2/2 nausea when taking meds and opts to use Tylenol at home instead. Home Meds Discontinued Reported Medications Calcium Carbonate* (Calcium Carbonate*) 600 MG Ca Tab, 600 MG PO DAILY, TAB 11/10/15 Ferrous Sulfate (Iron) 325 Mg Capsule.er, 325 MG PO DAILY, CAP 11/10/15 Multivit/Min/Fol Ac/Iron/Pren* ( S*) 1 Tab Tab, 1 TAB PO DAILY, TAB 11/10/15 Discontinued Scripts Omeprazole* (Omeprazole*) 20 Mg Capsule.dr, 20 MG PO DAILY, #30 CAP Prov:MEÑO GIORDANO MD 05/30/16 Metoclopramide Hcl (Reglan) 5 Mg Tab, 5 MG PO Q6H Y for NAUSEA, #20 TAB Prov:MEÑO GIORDANO MD 05/30/16 Ondansetron Hcl* (Zofran*) 4 Mg Tab, 4 MG PO Q4H Y for NAUSEA AND OR VOMITING, # 14 TAB Prov:MEÑO GIORDANO MD 05/30/16 Docusate Sodium* (Colace*) 100 Mg Capsule, 100 MG PO Q24H Y for CONSTIPATION, # 30 CAP Prov:MEÑO GIORDANO MD 05/30/16 Oxycodone Hcl/Acetaminophen (Percocet) 1 Tab Tab, 2 TAB PO Q4H Y for PAIN LEVEL 6-10, #30 TAB 0 Refills Prov:JULIUS NOLEN MD 12/18/15 Follow-up Plan Pt has been counseled on the importance of qWeekly follow-up with 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 She has also been counseled on importance of using reliable contraception for the next 6 months following undetectable Bhcg levels. The risks of failing to follow through with proper post-molar surveillance has also been explained in detail and pt verbalized understanding. Primary Care Provider H[employer]ICULT[employer] FARMWORKER Time spent on discharge: < 30 minutes SAW SINGH MD Sep 03, 2016 13:51
== END 2016-09-03 16:55 | disposition home or self-care (01) | DRG 775 ==
LOC: FTE 10:51 → PP2 14:59
PROC: 10D07Z8 Extraction of Products of Conception, Other, Via Natural or Artificial Opening (ICD-10-PCS; principal; 2016-09-02 16:30)
DX: O02.0 Blighted ovum and nonhydatidiform mole (principal); Z3A.09 9 weeks gestation of pregnancy
CPT/HCPCS: 71010; 76801; 76817; 80053; 81001; 84702; 85025; 85610; 85730; 86900; 86901; 88307; J0690; J1100; J1885; J2210; J2250; J2370; J2405; J2765; J3010; J7030; J7120

== ENCOUNTER 2016-10-17 00:34 | Emergency (ER) | payer MEDICAID ==
[~2016-10-17] VITALS: Ht 160 cm; Wt 101.5 kg
[2016-10-17 00:36] VITALS: Ht 160 cm; Wt 101.5 kg
--- NOTE | 2016-10-17 03:35 | ERD ---
ER Documentation Chief Complaint Date/Time DATE: 10/17/16 TIME: 03:31 Chief Complaint vaginal bleeding w/ pelvic pain x 2 days HPI 31-year-old female presents to emergency department for complaints of vaginal bleeding that started 3 days ago. Patient does not know if this is her regular. , Stated that bleeding is darker than the normal. Patient was diagnosed of molar 1-1/2 months ago, had dilatation and curettage for removal of molar . Patient states that she had hormone monitoring, still has been having high levels of beta hCG quantitative. Patient is complaining of pelvic pain, cramping, 6/10 scale, patient denies any fever or chills. Patient denies any hematuria or dysuria. ROS All systems reviewed and are negative except as per history of present illness. Medications Home Meds Reported Medications [none] Unknown Strength No Conflict Check 10/17/16 Allergies Allergies: Coded Allergies: ciprofloxacin (Verified Allergy, Unknown, HIVES, 09/01/16) PMhx/Soc History of Surgery: Yes (umbillical hernia repair/gallstone removal with stent placemnt/csection x1) Anesthesia Reaction: No Hx Neurological Disorder: No Hx Respiratory Disorders: No Hx Cardiac Disorders: No Hx Psychiatric Problems: No Hx Miscellaneous Medical Probl: No Hx Alcohol Use: No Hx Substance Use: No Hx Tobacco Use: No FmHx Family History: No coronary disease, No diabetes, No other Physical Exam Vitals Vital Signs Date Time Temp Pulse Resp B/P Pulse Ox O2 Delivery O2 Flow Rate FiO2 10/17/16 00:36 98.2 82 20 139/76 99 Physical Exam GENERAL: The patient is well developed and appropriate for usual state of health, in no apparent distress. CHEST: Clear to auscultation bilaterally. There are no rales, wheezes or rhonchi. HEART: Regular rate and rhythm. No murmurs, clicks, rubs or gallops. No S3 or S4. ABDOMEN: Soft, nontender and nondistended. Good bowel sounds. No rebound or guarding. No gross peritonitis. No gross organomegaly or masses. No Chan sign or McBurney point tenderness. BACK: No midline or flank tenderness. EXTREMITIES: Equal pulses bilaterally. There is no peripheral clubbing, cyanosis or edema. No focal swelling or erythema. Full range of motion. Grossly neurovascularly intact. NEURO: Alert and oriented. Cranial nerves 2-12 intact. Motor strength in all 4 extremities with 5/5 strength. Sensation grossly intact. Normal speech and gait. SKIN: There is no apparent rash or petechia. The skin is warm and dry. HEMATOLOGIC AND LYMPHATIC: There is no evidence of excessive bruising or lymphedema. No gross cervical, axillary, or inguinal lymphadenopathy. Result Diagram: 10/17/16 0311 Results 24 hrs Laboratory Tests Test 10/17/16 03:11 White Blood Count 8.310^3/ul Red Blood Count 4.4910^6/ul Hemoglobin 12.1g/dl Hematocrit 37.0% Mean Corpuscular Volume 82.4fl Mean Corpuscular Hemoglobin 26.9pg Mean Corpuscular Hemoglobin Concent 32.7g/dl Red Cell Distribution Width 13.9% Platelet Count 12988^3/UL Mean Platelet Volume 9.8fl Neutrophils % 64.7% Lymphocytes % 28.3% Monocytes % 5.6% Eosinophils % 0.8% Basophils % 0.2% Nucleated Red Blood Cells % 0.0/100WBC Neutrophils # 5.410^3/ul Lymphocytes # 2.410^3/ul Monocytes # 0.510^3/ul Eosinophils # 0.110^3/ul Basophils # 0.010^3/ul Nucleated Red Blood Cells # 0.010^3/ul Urine Color YELLOW Urine Clarity CLEAR Urine pH 5.0 Urine Specific [place] 1.016 Urine Ketones NEGATIVEmg/dL Urine Nitrite POSITIVEmg/dL Urine Bilirubin NEGATIVEmg/dL Urine Urobilinogen NEGATIVEmg/dL Urine Leukocyte Esterase NEGATIVELeu/ul Urine Microscopic RBC 0/HPF Urine Microscopic WBC 11/HPF Urine Squamous Epithelial Cells FEW/HPF Urine Bacteria FEW/HPF Urine Hemoglobin 3+mg/dL Urine Glucose NEGATIVEmg/dL Urine Total Protein NEGATIVEmg/dl Beta HCG, Quantitative 1300.8mIU/ml PROCEDURE: US OB. CLINICAL INDICATION: Vaginal bleeding in . TECHNIQUE: Transabdominal and endovaginal imaging of the uterus is available for review COMPARISON: None available FINDINGS: No intrauterine is identified. The endometrial stripe is heterogeneous and measures 16 mm in thickness. The uterus is otherwise unremarkable. The right ovary measures 3.3 x 1.8 x 1.8 cm and the left ovary measures 2.7 x 1.5 x 1.5 cm. No adnexal mass is identified. No free fluid is noted within the pelvis. IMPRESSION: No intrauterine identified. There are no adnexal masses. Correlation with serial beta HCGs and repeat pelvic ultrasound as clinically indicated, is recommended, as ectopic is not excluded on this examination. RPTAT: HH .Rosio Giraldo MD, Date Time Electronically viewed and signed by .Rosio Giraldo MD, on 10/17/2016 05 :08 .G/ Procedures/MDM Medical Decision Making: Patients vaginal bleeding is most likely consistent with her normal menstruation. Patient does not show any evidence of hypovolemic shock. Patients hemoglobin and hematocrit is stable. There is low suspicion for ectopic . JUAN results show intrauterine BetaHCG Quantitative is compared to last time The patient is Rh+, does not need RhoGAM this time. There is no signs of symptoms of dehydration. There is low suspicion for sepsis. Patient appears well and is hemodynamically stable. She also has urinary tract infection and will be treated. Most likely this can be also causing the pelvic pain. Disposition: Home. Condition: Stable Prescription: Keflex, Tylenol Instructions: Patient is advised to do bed rest, avoid heavy lifting, and avoid having sex until cleared by OB doctor. Patient is advised to follow up with OB doctor or here at the ER reevaluation, do good perineal hygiene. Patient is advised that is symptoms are worst, severe bleeding, dizziness, severe abdominal pain, fever, worst signs and symptoms to return to the emergency department immediately. Departure Diagnosis: Primary Impression: Vaginal bleeding Additional Impression: UTI (urinary tract infection) Urinary tract infection type: acute cystitis Hematuria presence: with hematuria Qualified Code: N30.01 - Acute cystitis with hematuria Condition: Stable Patient Instructions: Dysfunctional Uterine Bleeding, Understanding Urinary Tract Infections (UTIs) Additional Instructions: Patient is advised to do bed rest, avoid heavy lifting, and avoid having sex until cleared by OB doctor. Patient is advised to follow up with OB doctor or here at the ER reevaluation, do good perineal hygiene. Patient is advised that is symptoms are worst, severe bleeding, dizziness, severe abdominal pain, fever , worst signs and symptoms to return to the emergency department immediately. RUY BATES NP Oct 17, 2016 03:35
[2016-10-17 03:53] LABS: ADD UMIC YES; UR ASCORBIC ACID NEGATIVE (NEGATIVE); UR BACTERIA FEW /HPF (NONE SEEN); UR BILIRUBIN (Dip) NEGATIVE (NEGATIVE); UR BLOOD (Dip) 3+ mg/dL (NEGATIVE); UR CLARITY CLEAR (CLEAR); UR COLOR YELLOW (YELLOW); UR GLUCOSE (Dip) NEGATIVE (NEGATIVE); UR KETONES (Dip) NEGATIVE (NEGATIVE); UR LEUKOCYTE ESTERASE (Dip) NEGATIVE Leu/ul (NEGATIVE); UR NITRITE (Dip) POSITIVE (NEGATIVE); UR RBC 0 /HPF (0-5); UR SPECIFIC GRAVITY (Dip) 1.016 (1.003-1.030); UR SQUAMOUS EPITHELIAL CELL FEW /HPF (FEW); UR TOTAL PROTEIN (Dip) NEGATIVE (NEGATIVE); UR UROBILINOGEN (Dip) NEGATIVE (NEGATIVE)
[2016-10-17 04:17] LABS: BASOPHILS % 0.2 % (0.0-2.0); EOSINOPHILS # 0.1 10^3/ul (0.0-0.5); EOSINOPHILS % 0.8 % (0.0-7.0); HEMOGLOBIN 12.1 g/dl (12.0-16.0); LYMPHOCYTES # 2.4 10^3/ul (0.8-2.9); LYMPHOCYTES % 28.3 % (15.0-51.0); MEAN CORPUSCULAR HEMOGLOBIN 26.9 pg (29.0-33.0); MEAN CORPUSCULAR HGB CONC 32.7 g/dl (32.0-37.0); MEAN CORPUSCULAR VOLUME 82.4 fl (82.0-101.0); MEAN PLATELET VOLUME 9.8 fl (7.4-10.4); MONOCYTE # 0.5 10^3/ul (0.3-0.9); MONOCYTES % 5.6 % (0.0-11.0); NEUTROPHIL # 5.4 10^3/ul (1.6-7.5); NEUTROPHILS % 64.7 % (39.0-77.0); PLATELET COUNT 353 10^3/UL (140-415); RED BLOOD COUNT 4.49 10^6/ul (4.20-5.40); RED CELL DISTRIBUTION WIDTH 13.9 % (11.5-14.5); WHITE BLOOD COUNT 8.3 10^3/ul (4.8-10.8)
--- NOTE | 2016-10-17 05:09 | RADRPT ---
PROCEDURE: US OB. CLINICAL INDICATION: Vaginal bleeding in . TECHNIQUE: Transabdominal and endovaginal imaging of the uterus is available for review COMPARISON: None available FINDINGS: No intrauterine is identified. The endometrial stripe is heterogeneous and measures 16 mm in thickness. The uterus is otherwise unremarkable. The right ovary measures 3.3 x 1.8 x 1.8 cm a nd the left ovary measures 2.7 x 1.5 x 1.5 cm. No adnexal mass is identified. No free fluid is not ed within the pelvis. IMPRESSION: No intrauterine identified. There are no adnexal masses. Correlation with serial beta HC Gs and repeat pelvic ultrasound as clinically indicated, is recommended, as ectopic is not excluded on this examination. RPTAT: HH .Rosio Giraldo MD, Date Time Electronically viewed and signed by .Rosio Giraldo MD, on 10/17/2016 05:08 .G/
[2016-10-17] MEDS ORDERED: ACET500C5 PO (05:21)
[2016-10-17] MEDS ORDERED: CEPH-443 PO (05:21)
== END 2016-10-17 05:35 | disposition home or self-care (01) ==
LOC: FTE 00:34
DX: O20.9 Hemorrhage in early pregnancy, unspecified (principal); O23.11 Infections of bladder in pregnancy, first trimester; R10.2 Pelvic and perineal pain; Z3A.01 Less than 8 weeks gestation of pregnancy
CPT/HCPCS: 36415; 76830; 76856; 81001; 84702; 85025

== ENCOUNTER 2018-01-14 23:21 | Emergency (ER) | END 2018-01-15 05:26 | disposition home or self-care (01) ==

== ENCOUNTER 2018-07-06 20:50 | Emergency (ER) | payer MEDICAID ==
[~2018-07-06] VITALS: Ht 152.4 cm; Wt 102.6 kg
[~2018-07-06 20:50] MED LIST changes: +ACET500C5 PO; -CALC600T11 PO; +CEPH-443 PO; +CYCL10TA7 PO; -DOCU-144 PO; -FERR325C PO; +HYDR-4011 PO; +IBUP-1542 PO; -METO5TAB2 PO; -OMEP20CA16 PO; -ONDA-43 PO; -PERCOCET PO; +PHEN-538 PO; -PRENAT PO
[2018-07-06 21:13] VITALS: Ht 152.4 cm; Wt 102.6 kg
[2018-07-07] MEDS ORDERED: MAGN400O19 PO (03:14)
--- NOTE | 2018-07-07 03:14 | ERD ---
ER Documentation Chief Complaint Chief Complaint abd pain since yesterday. states 18 weeks , denies vb HPI 43-year-old female Ab1 presenting with lower abdominal pain since yesterday. She is currently 19 weeks and her last ultrasound was that 8 weeks. She states she has been feeling a lot of pelvic pressure with some pain in her upper thighs. No vaginal discharge or bleeding. No dysuria. She denies any fevers or chills. Her pain is worse with sitting and movement. She does state that she has been a little constipated lately ROS All systems reviewed and are negative except as per history of present illness. Medications Home Meds Active Scripts Magnesium Hydroxide* (Milk Of Magnesia*) 400 Mg/5 Ml Oral.susp, 30 ML PO BID PRN for CONSTIPATION, #300 ML Prov:MARY LOU HERMAN MD 07/07/18 Phenazopyridine Hcl* (Pyridium*) 200 Mg Tab, 200 MG PO TID PRN for URINARY PAIN, #6 TAB Prov:RUY BATES NP 01/15/18 Cephalexin* (Keflex*) 500 Mg Capsule, 500 MG PO QID for 10 Days, CAP Prov:RUY BATES NP 01/15/18 Ibuprofen* (Motrin*) 600 Mg Tab, 600 MG PO Q6H PRN for PAIN AND OR ELEVATED TEMP, #30 TAB Prov:RUY BATES NP 01/15/18 Cyclobenzaprine Hcl* (Cyclobenzaprine Hcl*) 10 Mg Tablet, 10 MG PO TID, #15 TAB Prov:RUY BATES NP 01/15/18 Hydrocodone/Acetaminophen ([place] 5-325 Tablet) 1 Each Tablet, 1 TAB PO Q6H PRN for SEVERE PAIN LEVEL 7-10, #7 TAB Prov:RUY BATES NP 01/15/18 Acetaminophen* (Tylophen*) 500 Mg Capsule, 1 CAP PO Q6H PRN for PAIN AND OR ELEVATED TEMP, #20 CAP Prov:RUY BATES NP 10/17/16 Cephalexin* (Keflex*) 500 Mg Capsule, 500 MG PO QID for 10 Days, CAP Prov:RUY BATES NP 10/17/16 Reported Medications [none] Unknown Strength No Conflict Check 10/17/16 Allergies Allergies: Coded Allergies: ciprofloxacin (Verified Allergy, Unknown, HIVES, 01/15/18) PMhx/Soc History of Surgery: Yes ( x1, umbilical hernia repair, ureteral stent) Anesthesia Reaction: No Hx Neurological Disorder: No Hx Respiratory Disorders: No Hx Cardiac Disorders: No Hx Psychiatric Problems: No Hx Miscellaneous Medical Probl: No Hx Alcohol Use: No Hx Substance Use: No Hx Tobacco Use: No Smoking Status: Never smoker FmHx Family History: No diabetes Physical Exam Vitals Vital Signs Date Temp Pulse Resp B/P (MAP) Pulse Ox O2 O2 Flow FiO2 Time Delivery Rate 07/07/18 97.3 92 18 121/56 99 Room Air 03:21 (77) 07/07/18 97.3 86 18 123/70 100 Room Air 01:07 (87) 07/06/18 97.3 93 18 140/78 98 21:13 (98) Physical Exam Const: No acute distress Head: Atraumatic Eyes: Normal Conjunctiva ENT: Normal External Ears, Nose and Mouth. Neck: Full range of motion. No meningismus. Resp: Clear to auscultation bilaterally Cardio: Regular rate and rhythm, no murmurs Abd: Gravid. Soft, non tender, non distended. No rebound or guarding. No hepatomegaly. Negative Chan sign. No McBurney's point tenderness. Normal bowel sounds Skin: No petechiae or rashes Back: No midline or flank tenderness Ext: No cyanosis, or edema Neur: Awake and alert Psych: Normal Mood and Affect Result Diagram: 07/07/18 0120 07/07/18 0120 Results 24 hrs Laboratory Tests Test 07/07/18 01:20 White Blood Count 7.5 10^3/ul Red Blood Count 4.19 10^6/ul Hemoglobin 11.6 g/dl Hematocrit 34.9 % Mean Corpuscular Volume 83.3 fl Mean Corpuscular Hemoglobin 27.7 pg Mean Corpuscular Hemoglobin Concent 33.2 g/dl Red Cell Distribution Width 14.1 % Platelet Count 241 10^3/UL Mean Platelet Volume 9.7 fl Immature Granulocytes % 0.300 % Neutrophils % 65.3 % Lymphocytes % 26.0 % Monocytes % 6.9 % Eosinophils % 1.2 % Basophils % 0.3 % Nucleated Red Blood Cells % 0.0 /100WBC Immature Granulocytes # 0.020 10^3/ul Neutrophils # 4.9 10^3/ul Lymphocytes # 2.0 10^3/ul Monocytes # 0.5 10^3/ul Eosinophils # 0.1 10^3/ul Basophils # 0.0 10^3/ul Nucleated Red Blood Cells # 0.0 10^3/ul Urine Color YELLOW Urine Clarity CLOUDY Urine pH 8.0 Urine Specific [place] 1.012 Urine Ketones 1+ mg/dL Urine Nitrite NEGATIVE mg/dL Urine Bilirubin NEGATIVE mg/dL Urine Urobilinogen NEGATIVE mg/dL Urine Leukocyte Esterase NEGATIVE Molly/ul Urine Microscopic RBC 1 /HPF Urine Microscopic WBC 2 /HPF Urine Squamous Epithelial Cells MODERATE /HPF Urine Bacteria FEW /HPF Urine Mucus FEW /HPF Urine Hemoglobin NEGATIVE mg/dL Urine Glucose NEGATIVE mg/dL Urine Total Protein NEGATIVE mg/dl Sodium Level 139 mmol/L Potassium Level 3.6 mmol/L Chloride Level 110 mmol/L Carbon Dioxide Level 22 mmol/L Anion Gap 7 Blood Urea Nitrogen 6 mg/dl Creatinine 0.43 mg/dl Est Glomerular Filtrat Rate mL/min > 60 mL/min Glucose Level 79 mg/dl Calcium Level 9.4 mg/dl Total Bilirubin 0.2 mg/dl Direct Bilirubin 0.00 mg/dl Indirect Bilirubin 0.2 mg/dl Aspartate Amino Transf (AST/SGOT) 17 IU/L Alanine Aminotransferase (ALT/SGPT) 9 IU/L Alkaline Phosphatase 81 IU/L Total Protein 7.3 g/dl Albumin 3.6 g/dl Globulin 3.70 g/dl Albumin/Globulin Ratio 0.97 Beta HCG, Quantitative 58326.0 mIU/ml Procedures/MDM EMERGENT LABS AND DIAGNOSTIC STUDIES: Lab Results above were reviewed and interpreted by me. CBC: no anemia or evidence of infection CMP: No evidence of clinically significant electrolyte abnormality, acidosis, renal failure, hypoglycemia, liver disease, or biliary obstruction UA: no evidence of infection Radiology Results as interpreted by Radiology below were reviewed by Phil Herman MD: Pelvic ultrasound: Single live intrauterine gestation of approximately 19 weeks 1 day. Estimated date of delivery 11/30/2018.. No apparent complications. Initial Nursing notes reviewed. Previous Medical Records requested via the Electronic Health Record. EMERGENCY DEPARTMENT COURSE / MEDICAL DECISION MAKING: Patient is in her second trimester presenting with pelvic pressure-like pain. I doubt acute appendicitis or acute surgical abdomen. No evidence of UTI on workup. Labs and imaging are all normal. I suspect that this is likely pain secondary to her growing uterus. Doubt PID or threatened AB. Patient was reassured. Follow-up with her OB was recommended. She states she has a OB follow-up next week. If any of her symptoms are to worsen until then, she was encouraged to return to the ER immediately. Patient's blood pressure was elevated (>120/80) but appears stable without evidence of hypertensive emergency or urgency. The patient was counseled about the risks of hypertension and urged to pursue outpatient monitoring and therapy within a week with their primary care physician. Departure Diagnosis: Primary Impression: Abdominal pain Abdominal location: lower abdomen, unspecified Qualified Codes: R10.30 - Lower abdominal pain, unspecified Additional Impressions: Second trimester Constipation Constipation type: unspecified constipation type Qualified Codes: K59.00 - Constipation, unspecified Condition: Stable Patient Instructions: Abdominal Pain, Unknown Cause, (Female), Constipation (Adult) MARY LOU HERMAN MD Jul 07, 2018 03:14
[2018-07-07 03:21] VITALS: BP 121/56; PULSE 92; RESP 18
== END 2018-07-07 03:20 | disposition home or self-care (01) ==
LOC: E/R 20:50
DX: O99.611 Diseases of the digestive system complicating pregnancy, first trimester (principal); K59.00 Constipation, unspecified; R10.2 Pelvic and perineal pain; Z3A.19 19 weeks gestation of pregnancy
CPT/HCPCS: 36415; 76805; 80053; 81001; 84702; 85025; 87086; Z7502

== ENCOUNTER 2018-10-10 21:05 | Outpatient (CLI) | payer MEDICAID ==
[~2018-10-10] VITALS: Ht 152.4 cm; Wt 100.3 kg
[~2018-10-10 21:05] MED LIST changes: +MAGN400O19 PO
[2018-10-10 21:39] VITALS: BP 107/62; PULSE 110; RESP 18
--- NOTE | 2018-10-11 01:18 | PN ---
Triage Information Date/Time 10/11/18 Reason for visit: Uterine contractions Weeks of Gestation 32w4d /Para Diabetes: gestational Diabetes management: diet controlled Hypertention: none Objective Vital Signs Date Temp Pulse Resp B/P (MAP) Pulse Ox O2 O2 Flow FiO2 Time Delivery Rate 10/10/18 98.4 110 18 107/62 Room Air 21:39 (77) Heart Rate: 150's (160) Contractions: None Exam CVA neg for tenderness bilateral Results/Medications Results 24 hrs Laboratory Tests Test 10/10/18 22:50 10/11/18 00:16 Urine Color SUE Urine Clarity CLOUDY A Urine pH 6.0 Urine Specific [place] 1.019 Urine Ketones 2+ H Urine Nitrite NEGATIVE Urine Bilirubin 1+ H Urine Urobilinogen 2+ H Urine Leukocyte Esterase 2+ H Urine Microscopic RBC 13 H Urine Microscopic WBC 124 H Urine Squamous Epithelial Cells MANY A Urine Bacteria MANY A Urine Mucus MANY A Urine Hemoglobin 1+ H Urine Glucose NEGATIVE Urine Total Protein 2+ H Bedside Glucose 83 Imaging Results BPP 8/8 CVL 3.6 LARRY 13 Disposition: Discharge Assessment/Plan A IUP 32w4d UTI P macrobid BID #[id number] BONI BARAHONA MD Oct 11, 2018 01:18
== END 2018-10-11 00:45 | disposition home or self-care (01) ==
LOC: OBT 21:05 → L-D 21:05 → OBT 10-11 00:45
PROVIDERS: ATTEND Obstetrics & Gynecology
DX: O62.9 Abnormality of forces of labor, unspecified (principal); O24.410 Gestational diabetes mellitus in pregnancy, diet controlled; O09.523 Supervision of elderly multigravida, third trimester; Z3A.32 32 weeks gestation of pregnancy
CPT/HCPCS: 76817; 76818; 81001; 82962; 87086; Z7500; G0463

== ENCOUNTER 2018-11-12 17:07 | Outpatient (CLI) | payer MEDICAID ==
[~2018-11-12 17:07] MED LIST changes: +ACET325T33 PO; -ACET500C5 PO; -CEPH-443 PO; -CYCL10TA7 PO; -HYDR-4011 PO; -IBUP-1542 PO; +IBUP800T48 PO; -MAGN400O19 PO; +METF500T3 PO; -PHEN-538 PO; +PNV11TAB PO
== END 2018-11-12 18:50 | disposition home or self-care (01) ==
LOC: OBT 17:07 → L-D 17:08 → OBT 18:50
PROVIDERS: ATTEND Obstetrics & Gynecology
DX: O24.415 Gestational diabetes mellitus in pregnancy, controlled by oral hypoglycemic drugs (principal); O09.523 Supervision of elderly multigravida, third trimester; Z3A.37 37 weeks gestation of pregnancy
CPT/HCPCS: G0463

== ENCOUNTER 2018-11-21 13:26 | Inpatient (IN) | payer MEDICAID ==
[~2018-11-21] VITALS: Ht 152.4 cm; Wt 100.8 kg
[~2018-11-21 13:26] MED LIST changes: +CEPH-443 PO; +IBUP-1542 PO
[2018-11-21 14:39] VITALS: Ht 152.4 cm; Wt 100.8 kg
[2018-11-21 14:40] VITALS: BP 107/67; PULSE 106; RESP 19
[2018-11-21] MEDS: LACTATED RINGER'S 1,000 ML IV SCH ×2 (17:12→17:55)
[2018-11-21] MEDS ORDERED: METHYLERGONOVINE 0.2 MG INJ IM PRN ×2 (17:30→22:30)
[2018-11-21] MEDS ORDERED: OXYTOCIN 30 UNITS/LR 500 ML IV PRN ×2 (17:30→22:30)
[2018-11-21] MEDS ORDERED: AZITHROMYCIN 500MG/NS (PMX) 250 ML IV SCH (17:30)
[2018-11-21] MEDS ORDERED: CEFAZOLIN 2 GM/50 ML (PMX) 50 ML IVPB SCH (17:30)
[2018-11-21] MEDS ORDERED: MISOPROSTOL 200 MCG TAB PR PRN ×2 (17:30→22:30)
[2018-11-21] MEDS ORDERED: CARBOPROST 250 MCG INJ IM PRN ×2 (17:30→22:30)
[2018-11-21] MEDS ORDERED: CITRIC ACID/NA CITRATE 30 ML CUP ONE (18:15)
[2018-11-21] MEDS ORDERED: EPHEDrine 25 MG/5 ML SYG ONE (18:17)
[2018-11-21] MEDS ORDERED: PHENYLephrine (100 MCG/ML) 10ML SYG ONE (18:17)
[2018-11-21] MEDS ORDERED: OXYTOCIN 30 UNITS/LR 500 ML BAG IV ONE (18:17)
[2018-11-21] MEDS ORDERED: OXYTOCIN 10 UNIT INJ ONE (18:17)
[2018-11-21] MEDS ORDERED: morphine SULFATE/PF (10 MG/10 ML) INJ ONE (18:17)
[2018-11-21] MEDS ORDERED: ONDANSETRON 4 MG INJ IV ONE (18:30)
[2018-11-21] MEDS ORDERED: CITRIC ACID/NA CITRATE 30 ML CUP PO ONE (18:30)
[2018-11-21] MEDS ORDERED: DEXAMETHASONE 4 MG/ML 1 ML INJ ONE (18:32)
[2018-11-21] MEDS ORDERED: KETOROLAC 30 MG INJ ONE (18:32)
[2018-11-21] MEDS ORDERED: ONDANSETRON 4 MG INJ ONE (18:32)
[2018-11-21] MEDS ORDERED: METOCLOPRAMIDE 10 MG INJ ONE (18:32)
[2018-11-21] MEDS ORDERED: ACETAMINOPHEN 500 MG TAB PO PRN ×2 (19:30→22:30)
[2018-11-21] MEDS ORDERED: HYDROCODONE/APAP (5/325) TAB PO PRN ×2 (19:30→22:30)
[2018-11-21] MEDS ORDERED: KETOROLAC 30 MG INJ IV PRN (19:30)
[2018-11-21] MEDS ORDERED: DIPHENHYDRAMINE 50 MG INJ IV PRN ×2 (19:30→22:30)
[2018-11-21] MEDS ORDERED: HYDROmorphONE 0.5 MG/0.5 ML SYG IV PRN ×4 (19:30→22:30)
[2018-11-21] MEDS ORDERED: NALBUPHINE HCL (10 MG/1 ML) INJ IV PRN ×2 (19:30→22:30)
[2018-11-21] MEDS ORDERED: NALOXONE (0.4 MG/ML) INJ IV PRN ×2 (19:30→22:30)
[2018-11-21] MEDS ORDERED: morphine 2 MG INJ IV PRN ×4 (19:30→22:30)
[2018-11-21] MEDS ORDERED: ONDANSETRON 4 MG INJ IV PRN ×2 (19:30→22:30)
[2018-11-21] MEDS ORDERED: KETOROLAC 30 MG INJ IV STA (19:37)
[2018-11-21] MEDS ORDERED: ACETAMINOPHEN 500 MG TAB PO STA (19:37)
[2018-11-21 22:10] VITALS: BP 112/70; PULSE 70; RESP 20
[2018-11-21] MEDS ORDERED: LACTATED RINGER'S 1,000 ML IV SCH (22:15)
[2018-11-21] MEDS ORDERED: LANOLIN HPA 1 PKT TOP PRN (22:30)
[2018-11-21] MEDS ORDERED: OXYCODONE/ACETAMINOPHEN (5/325) TAB PO PRN (22:30)
[2018-11-21] MEDS ORDERED: NA PHOSPHATE/BIPHOS 133 ML ENEMA PR PRN (22:30)
[2018-11-21] MEDS: SENNA/DOCUSATE NA (8.6MG/50MG) TAB PO SCH (22:30)
[2018-11-21] MEDS: CEFAZOLIN 2 GM/50 ML (PMX) 50 ML IVPB SCH (23:17)
[2018-11-22 03:56] VITALS: BP 115/70; PULSE 70; RESP 20
[2018-11-22] MEDS: CEFAZOLIN 2 GM/50 ML (PMX) 50 ML IVPB SCH ×2 (05:45→15:45)
[2018-11-22] MEDS: CLINDAMYCIN 300 MG CAP PO SCH ×5 (05:45→23:55)
[2018-11-22] MEDS: ACCU-CHEK XX SCH ×4 (07:30→20:38)
[2018-11-22 08:30] VITALS: BP 93/53; PULSE 61; RESP 18
[2018-11-22] MEDS: metFORMIN (XR) 500 MG TAB PO SCH ×2 (09:00→21:09)
[2018-11-22] MEDS ORDERED: BISACODYL 10 MG SUPP PR ONE (10:00)
[2018-11-22] MEDS: SENNA/DOCUSATE NA (8.6MG/50MG) TAB PO SCH ×2 (10:28→20:39)
[2018-11-22] MEDS: KETOROLAC 30 MG INJ IV PRN ×2 (12:01→18:11)
[2018-11-22 13:30] VITALS: BP 93/51; PULSE 56; RESP 16
[2018-11-22 16:00] VITALS: BP 94/57; PULSE 55; RESP 17
[2018-11-22 20:00] VITALS: BP 104/59; PULSE 87; RESP 19
[2018-11-22] MEDS: IBUPROFEN 800 MG TAB PO SCH (23:02)
[2018-11-23 03:10] VITALS: BP 104/54; PULSE 65; RESP 18
[2018-11-23] MEDS: ACCU-CHEK XX SCH ×4 (06:00→19:55)
[2018-11-23] MEDS: CLINDAMYCIN 300 MG CAP PO SCH ×4 (06:25→23:48)
[2018-11-23] MEDS: IBUPROFEN 800 MG TAB PO SCH ×3 (06:25→22:53)
[2018-11-23 08:00] VITALS: BP 92/62; PULSE 65; RESP 19
[2018-11-23] MEDS ORDERED: BISACODYL 10 MG SUPP PR ONE (08:30)
[2018-11-23] MEDS: metFORMIN (XR) 500 MG TAB PO SCH ×2 (08:49→21:04)
[2018-11-23] MEDS: SENNA/DOCUSATE NA (8.6MG/50MG) TAB PO SCH ×2 (08:49→21:04)
[2018-11-23] MEDS ORDERED: ACETAMINOPHEN 325 MG TAB PO PRN (12:00)
[2018-11-23] MEDS: HYDROCODONE/APAP (5/325) TAB PO PRN (13:23)
[2018-11-23 16:00] VITALS: BP 111/64; PULSE 71; RESP 18
[2018-11-23 20:00] VITALS: BP 119/61; PULSE 83; RESP 18
[2018-11-24 03:30] VITALS: BP 128/77; PULSE 76; RESP 19
[2018-11-24] MEDS: CLINDAMYCIN 300 MG CAP PO SCH ×2 (06:05→11:39)
[2018-11-24] MEDS: IBUPROFEN 800 MG TAB PO SCH ×2 (06:05→14:51)
[2018-11-24 07:30] VITALS: BP 109/71; PULSE 58; RESP 16
[2018-11-24] MEDS: ACCU-CHEK XX SCH ×2 (07:45→12:40)
[2018-11-24] MEDS ORDERED: DIPHTH/TET/ACEL PERTUSS (ADULT) 0.5 ML VIAL IM* ONE (09:00)
[2018-11-24] MEDS ORDERED: MEASLES,MUMPS,RUBELLA VACCINE INJ SC* ONE (09:00)
[2018-11-24] MEDS: metFORMIN (XR) 500 MG TAB PO SCH (09:03)
[2018-11-24] MEDS: SENNA/DOCUSATE NA (8.6MG/50MG) TAB PO SCH (09:03)
[2018-11-24] MEDS: HYDROCODONE/APAP (5/325) TAB PO PRN (11:56)
== END 2018-11-24 16:36 | disposition home or self-care (01) | DRG 788 ==
LOC: OBT 13:26 → L-D 13:26 → OBT 14:35 → L-D 18:04 → MS1 22:14
PROVIDERS: ADMIT Obstetrics & Gynecology; ATTEND Obstetrics & Gynecology
PROC: 10D00Z1 Extraction of Products of Conception, Low, Open Approach (ICD-10-PCS; principal; 2018-11-22)
DX: O34.211 Maternal care for low transverse scar from previous cesarean delivery (principal); O24.429 Gestational diabetes mellitus in childbirth, unspecified control; Z3A.38 38 weeks gestation of pregnancy; Z37.0 Single live birth; Z64.1 Problems related to multiparity
CPT/HCPCS: 76818; 82962; 84112; 85025; 85610; 85730; 86592; 86850; 86900; 86901; 87340; 90715; 99464; G0463; J0456; J0690; J1100; J1200; J1885; J2274; J2370; J2405; J2590; J2765; J7120

== ENCOUNTER 2018-12-01 17:04 | Emergency (ER) | payer MEDICAID ==
[~2018-12-01] VITALS: Ht 152.4 cm; Wt 92.2 kg
[2018-12-01 17:05] VITALS: Ht 152.4 cm; Wt 92.2 kg
[2018-12-01] MEDS ORDERED: SODIUM CHLORIDE 0.9% 1L BAG IV* STA ×2 (17:20→17:32)
[2018-12-01] MEDS ORDERED: CEFTRIAXONE 1 GM/50 ML (PMX) 50 ML IVPB ONE (17:30)
[2018-12-01] MEDS ORDERED: IBUPROFEN 600 MG TAB PO ONE (18:00)
[2018-12-01] MEDS ORDERED: ACETAMINOPHEN 325 MG TAB PO ONE (18:00)
[2018-12-01 20:02] VITALS: BP 132/78; PULSE 88; RESP 16
== END 2018-12-01 20:04 | disposition home or self-care (01) ==
LOC: E/R 17:04
DX: O86.20 Urinary tract infection following delivery, unspecified (principal); B96.89 Other specified bacterial agents as the cause of diseases classified elsewhere; O24.33 Unspecified pre-existing diabetes mellitus in the puerperium; Z79.84 Long term (current) use of oral hypoglycemic drugs
CPT/HCPCS: 36415; 71045; 80053; 81001; 83605; 84484; 85025; 85610; 85730; 87040; 87086; 93005; 96374; J0696; J7030; Z7502; Z7610